=== PATIENT | male | born 1940 | race Caucasian/White ===

== ENCOUNTER → 2016-04-24 | Outpatient (CLI) | payer OTHER ==
[~2016-04-24] MED LIST: ALLO100T PO; AMLO-114 PO; ASPI1TAB83 PO; ATOR10TA88 PO; CHOL20009 PO; HYDR25TA4 PO; INSDGI SC; INSUINJ4 SQ; LISI20TA3 PO; LRS10 PO; LUTE20TA PO; MECL1TAB42 PO; METO25TA3 PO; NRN100 PO; NVLGI/PEN SC; WARF2.5T8 PO; WARF5TAB7 PO
--- NOTE | 2016-04-24 14:47 | DIAGNOSTIC IMAGING REPORT ---
LUMBAR SPINE 5 VIEWS HISTORY: Back pain STRAIN OF LUMBAR PARASPINAL MUSCLE COMPARISON: None. FINDINGS: Very slight and shape scoliosis. Mild degenerative intervertebral disc changes throughout. Moderate disc degenerative change at L4-L5. No evidence for acute compression deformity. No subluxation. IMPRESSION: Mild to moderate degenerative change. Mild scoliosis. No acute process. Electronically signed by: Yordy Nunes M.D. 04/24/2016 2:46 PM Dictated Date/Time: 04/24/2016 2:45 PM
== END | disposition home or self-care (01) ==
LOC: C.RDSM 14:30
PROVIDERS: ATTEND Physical Medicine & Rehabilitation Sports Medicine
DX: M72.2 Plantar fascial fibromatosis (principal); S39.012D Strain of muscle, fascia and tendon of lower back, subsequent encounter; X58.XXXD Exposure to other specified factors, subsequent encounter

== ENCOUNTER → 2016-05-16 | Outpatient (CLI) | payer OTHER ==
--- NOTE | 2016-05-16 11:32 | DIAGNOSTIC IMAGING REPORT ---
LUMBAR SPINE MRI HISTORY: MRI lumbar spine M54.16 Lumbar [id number] TECHNIQUE: Multiplanar multisequence MRI of the lumbar spine was performed without the use of contrast. COMPARISON: None. FINDINGS: For the purpose of the report the L5-S1 disc space will be located on axial image 27 of 30. Normal signal characteristics of the vertebral bodies. Mild degenerative disc change L4-L5. Minimal disc desiccation L2-L3 and L3-L4. L1-L2: No significant central canal or neural foraminal narrowing. L2-L3: No significant central canal or neural foraminal narrowing. L3-L4: No significant central canal or neural foraminal narrowing. L4-L5: Mild broad-based disc bulge. Minimal impact anterior thecal sac. L5-S1: No significant central canal or neural foraminal narrowing. IMPRESSION: Minimal broad-based disc bulge L4-L5. Minimal degenerative disc change. Otherwise negative study Electronically signed by: Yordy Nunes M.D. 05/16/2016 11:31 AM Dictated Date/Time: 05/16/2016 11:26 AM
--- NOTE | 2016-05-16 14:10 | DIAGNOSTIC IMAGING REPORT ---
ABDOMEN AND PELVIS CT WITH ORAL CONTRAST CT DOSE: 1170.67 mGycm HISTORY: Pain. Neuropathy. M54.16 Lumbar [id number] TECHNIQUE: Multiaxial CT images of the abdomen and pelvis were performed following the use of oral contrast. COMPARISON STUDY: 07/08/2012 FINDINGS: Lung bases in general are clear. There is minimal pleural reactive thickening lateral aspect right base unaltered from the prior study. There are no new or interval basilar changes. Patient is status post cholecystectomy. Configuration of liver spleen and pancreas appear unremarkable. Mild cortical scarring of the kidneys bilaterally. No evidence renal hydronephrosis. No evidence for an obstructing urinary tract calculus. Mild atherosclerotic change of the abdominal and pelvic arterial vasculature. No evidence for aneurysm. . Nonobstructive bowel pattern. Structures of pelvis are unremarkable. IMPRESSION: No acute process of the abdomen or pelvis. Prior cholecystectomy Electronically signed by: Yordy Nunes M.D. 05/16/2016 2:09 PM Dictated Date/Time: 05/16/2016 2:03 PM
== END | disposition home or self-care (01) ==
LOC: C.MRI 10:40
PROVIDERS: ATTEND Internal Medicine Geriatric Medicine
DX: M54.16 Radiculopathy, lumbar region (principal)

== ENCOUNTER → 2016-05-29 | Outpatient (CLI) | payer OTHER ==
--- NOTE | 2016-05-29 12:43 | DIAGNOSTIC IMAGING REPORT ---
LEG LENGTH STUDY (WHOLE LEG) CLINICAL HISTORY: THORACIC BACK Pain, chest WALL Pain, leg LENGTH DISC COMPARISON STUDY: None FINDINGS: Total leg length of the right lower extremity is 97.05 mm. Total length on the left is 96.4 mm. Discrepancy is approximately 7 mm with a left leg shorter than that of the right. Femoral length of the left is 54.7 mm femoral length a left is 54.05 mm. Discrepancy is 6 mm Tibial length on the right is 42.3 mm on the left is 42.1 mm IMPRESSION: Total leg length discrepancy 7 mm with a left shoulder the lateral right. The bulk of this discrepancy is in a shorter left femoral leg length as compared to the right as discussed above Electronically signed by: Yordy Nunes M.D. 05/29/2016 12:41 PM Dictated Date/Time: 05/29/2016 12:35 PM
--- NOTE | 2016-05-29 12:46 | DIAGNOSTIC IMAGING REPORT ---
RIGHT RIBS UNILATERAL WITH PA CHEST CLINICAL HISTORY: RIGHT LOWER POSTERIOR FLANK PAIN Right COMPARISON STUDY: Chest 10/11/2012. FINDINGS: Stable blunting of the right lateral costophrenic sulcus and focal mild right pleural thickening. This appears to be due to prominent extrapleural fat and a small scarlike density on the 05/16/[address] No pleural effusions. No pneumothorax. The gallbladder surgically absent. The lungs are otherwise clear. The heart is stable in size. No acute rib fractures. Focal fusion within the right anterior fifth and sixth ribs. IMPRESSION: No acute rib fractures. No pneumothorax. Stable chronic changes within the right hemithorax as described above. Electronically signed by: Kareem Luna M.D. 05/29/2016 12:45 PM Dictated Date/Time: 05/29/2016 12:41 PM
== END | disposition home or self-care (01) ==
LOC: C.RADBC 11:46
PROVIDERS: ATTEND Anesthesiology
DX: M54.6 Pain in thoracic spine (principal); R07.89 Other chest pain; M21.752 Unequal limb length (acquired), left femur

== ENCOUNTER → 2016-06-06 | Outpatient (CLI) | payer OTHER ==
[~2016-06-06] MED LIST changes: -WARF2.5T8 PO
[2016-06-06 11:16] LABS: BASO % 0.5 %; BASO ABS # 0.03 K/uL (0-0.2); COMPLETE YES; EOS % 4.6 %; HEMATOCRIT 41.4 % (42-52); IG% 0.5 %; LYMPH % 27.7 %; LYMPH ABS # 1.61 K/uL (1.2-3.4); MEAN CORPUSCULAR HEMOGLOBIN 31.9 pg (25-34); MEAN PLATELET VOLUME 9.3 fL (7.4-10.4); MONO % 10.3 %; NEUT % 56.4 %; PLATELET COUNT 226 K/uL (130-400); RED BLOOD COUNT 4.55 M/uL (4.7-6.1); WHITE BLOOD COUNT 5.81 K/uL (4.8-10.8)
[2016-06-06 11:28] LABS: ESTIMATED AVERAGE GLUCOSE 203 mg/dl; HA1C FLAG Normal (Normal)
[2016-06-06 11:55] LABS: AST/SGOT 11 U/L (15-37); BLOOD UREA NITROGEN 36 mg/dl (7-18); BUN/CREATININE RATIO 17.9 (10-20); CALCIUM 8.8 mg/dl (8.5-10.1); CARBON DIOXIDE 26 mmol/L (21-32); CHLORIDE 108 mmol/L (98-107); CHOLESTEROL 142 mg/dl (0-200); CHOLESTEROL/HDL RATIO 3.2; GLUCOSE 195 mg/dl (70-99); HDL CHOLESTEROL 45 mg/dl; LDL CHOLESTEROL CALCULATED 72 mg/dl; SODIUM 141 mmol/L (136-145); TRIGLYCERIDES 124 mg/dl (0-150); URIC ACID 6.1 mg/dl (2.6-7.2); VERY LOW DENSITY LIPOPROT CALC 25 mg/dl
[2016-06-06 12:03] LABS: ALB/GLOB RATIO 1.1 (0.9-2); ALKALINE PHOSPHATASE 63 U/L (45-117); ALT/SGPT 23 U/L (12-78)
[2016-06-06 12:21] LABS: URINE APPEARANCE CLEAR (CLEAR); URINE BILIRUBIN NEG (NEG); URINE COLOR DK YELLOW; URINE EPITHELIAL CELL AUTO 0-5 /lpf (0-5); URINE NITRITE NEG (NEG); URINE SPECIFIC GRAVITY 1.023 (1.000-1.030); UROBILINOGEN NEG (NEG)
[2016-06-06 12:26] LABS: MANUAL MICROSCOPIC REQUIRED? NO; REVIEW REQ? NO
[2016-06-06 12:52] LABS: RATIO 12.8 mcg/mg (0-30.0)
== END | disposition home or self-care (01) ==
LOC: C.LAB1850 10:06
PROVIDERS: ATTEND Internal Medicine
DX: I12.9 Hypertensive chronic kidney disease with stage 1 through stage 4 chronic kidney disease, or unspecified chronic kidney disease (principal); K57.30 Diverticulosis of large intestine without perforation or abscess without bleeding; E11.22 Type 2 diabetes mellitus with diabetic chronic kidney disease; I48.0 Paroxysmal atrial fibrillation; Z79.01 Long term (current) use of anticoagulants; E55.9 Vitamin D deficiency, unspecified; E87.5 Hyperkalemia; N18.3 Chronic kidney disease, stage 3 (moderate)

== ENCOUNTER → 2016-06-19 | Outpatient (CLI) | payer OTHER ==
[2016-06-19 17:29] LABS: INR 1.8 (0.9-1.1); PROTHROMBIN TIME (PATIENT) 20.1 SECONDS (9.0-12.0)
[2016-06-23 00:36] LABS: VARICELLA ZOS VIR IGG 4.02 Index (>=1.10); VARICELLA ZOS VIR IGM AB <=0.90 (<=0.90)
== END | disposition home or self-care (01) ==
LOC: C.LAB1850 16:16
PROVIDERS: ATTEND Internal Medicine
DX: E78.5 Hyperlipidemia, unspecified (principal); I48.0 Paroxysmal atrial fibrillation

== ENCOUNTER → 2016-06-25 | Outpatient (CLI) | payer OTHER ==
[~2016-06-25] MED LIST changes: +ATOR10TA82 PO; -ATOR10TA88 PO
--- NOTE | 2016-06-25 12:34 | DIAGNOSTIC IMAGING REPORT ---
THORACIC SPINE MRI HISTORY: Pain. Radiculopathy. THORACIC RADICULOPATHY TECHNIQUE: Multiplanar multisequence MRI of the thoracic spine was performed without the use of contrast. COMPARISON: None. FINDINGS: Moderate degenerative disc change throughout the entire thoracic region. Signal characteristics of the vertebral bodies are unremarkable. There is no acute compression deformity. There is no evidence for subluxation. Signal characteristics of the thoracic cord are unremarkable. Transaxial images throughout the entire thoracic region are considered negative for major disc herniation spinal stenosis or narrowing of the neural foramina. IMPRESSION: 1. Considerable degenerative disc change throughout the entire thoracic region. 2. No evidence for disc herniation or spinal stenosis. Electronically signed by: Yordy Nunes M.D. 06/25/2016 12:33 PM Dictated Date/Time: 06/25/2016 12:30 PM
== END | disposition home or self-care (01) ==
LOC: C.MRIBC 11:03
PROVIDERS: ATTEND Internal Medicine Geriatric Medicine
DX: M54.14 Radiculopathy, thoracic region (principal)

== ENCOUNTER 2016-07-27 11:59 | Emergency (ER) | payer OTHER ==
[~2016-07-27] VITALS: Ht 180.3 cm; Wt 120.0 kg
[~2016-07-27 11:59] MED LIST changes: -CHOL20009 PO; -INSDGI SC; -LRS10 PO; -LUTE20TA PO; -MECL1TAB42 PO; -NRN100 PO
[2016-07-27 12:01] VITALS: TEMP 36.4; Ht 180.3 cm; Wt 120.0 kg
[2016-07-27] MEDS ORDERED: CHOL20009 PO (12:44)
[2016-07-27] MEDS ORDERED: LUTE20TA PO (12:44)
[2016-07-27] MEDS ORDERED: INSDGI SC (12:44)
[2016-07-27] MEDS ORDERED: NRN100 PO (12:44)
[2016-07-27] MEDS ORDERED: LRS10 PO (12:44)
[2016-07-27] MEDS ORDERED: ONDANSETRON INJ 2 MG/ML 2 ML VIAL IV STA (12:57)
[2016-07-27] MEDS ORDERED: ONDANSETRON INJ 2 MG/ML 2 ML VIAL ONE (12:59)
[2016-07-27 13:10] LABS: BASO % 0.8 %; BASO ABS # 0.05 K/uL (0-0.2); COMPLETE YES; EOS % 5.5 %; HEMATOCRIT 44.1 % (42-52); IG% 0.5 %; LYMPH % 26.3 %; LYMPH ABS # 1.66 K/uL (1.2-3.4); MEAN CORPUSCULAR HEMOGLOBIN 31.6 pg (25-34); MEAN CORPUSCULAR HGB CONC 33.6 g/dl (32-36); NEUT % 57.9 %; PLATELET COUNT 201 K/uL (130-400); RED BLOOD COUNT 4.69 M/uL (4.7-6.1); WHITE BLOOD COUNT 6.31 K/uL (4.8-10.8)
[2016-07-27] MEDS ORDERED: MECLIZINE HCL 25 MG TAB PO STA (13:10)
[2016-07-27] MEDS ORDERED: SODIUM CHLORIDE 0.9% 1000ML 1,000 ML IV STA (13:10)
[2016-07-27] MEDS ORDERED: DIAZEPAM INJ 5 MG/ML 2 ML CARP IV STA (13:10)
[2016-07-27 13:15] LABS: INR 1.7 (0.9-1.1); PARTIAL THROMBOPLASTIN RATIO 1.2; PROTHROMBIN TIME (PATIENT) 18.8 SECONDS (9.0-12.0)
[2016-07-27 13:19] LABS: BUN/CREATININE RATIO 20.3 (10-20); CALCIUM 8.8 mg/dl (8.5-10.1); CREATININE 1.9 mg/dl (0.60-1.40); POTASSIUM 5.2 mmol/L (3.5-5.1)
[2016-07-27 13:22] LABS: ALB/GLOB RATIO 1.1 (0.9-2)
--- NOTE | 2016-07-27 13:44 | EMERGENCY ROOM VISIT NOTE ---
History Report prepared by Keri: Silvestre Ruiz Under the Supervision of: Dr. Reji Alfred M.D. First contact with patient: 13:03 Chief Complaint: NAUSEA Stated Complaint: LIGHTHEADED, NAUSEA Nursing Triage Summary: PT VERBALIZES LIGHTHEADEDNESS AND DRY HEAVES FOR 15 MINUTES UNCONTROLLED WHILE JUST SITTING AT HOME, HIT HIM SUDDENLY. PT VERBALIZES HE HAS BEEN TAKING MEDICATIONS FOR BACK PAIN, BUT NOTHING NEW. History of Present Illness The patient is a 76 year old male who presents to the Emergency Room with complaints of nausea that began earlier today. He was sitting down drinking coffee when he moved his head suddenly. He then became very lightheaded and nauseated for about 15 minutes. Sudden movements make his symptoms present themselves worse, while lying down makes them better. He denies any double vision. He is currently on Coumadin. He has a past medical history of atrial fibrillation. He has been experiencing back pain for 3 months which he is currently being treated for as well. Source of History: patient Onset: earlier today Position: other (global) Symptom Intensity: moderate Quality: other (nausea) Timing: waxes/wanes Modifying Factors (Worsening): movement (sudden) Note: He denies any double vision. He is experiencing lightheadedness. Review of Systems See HPI for pertinent positives & negatives. A total of 10 systems reviewed and were otherwise negative. 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, TYPE II OR UNSPEC TYPE, NOT UNCNTRLD (4) HYPERTENSION NOS (5) MIXED HYPERLIPIDEMIA Family History Diabetes mellitus Hypertension Kidney disease Kidney stones Social History Smoking Status: Never Smoker Alcohol Use: none Drug Use: none Marital Status: Housing Status: lives with family Occupation Status: retired Current/Historical Medications Scheduled Allopurinol (Zyloprim), 100 MG PO HS Amlodipine (Norvasc), 10 MG PO HS Aspirin (Aspirin), 81 MG PO HS Atorvastatin (Lipitor), 10 MG PO HS Baclofen (Baclofen), 10 MG PO HS Cholecalciferol (Vitamin D), 2,000 UNIT PO QAM Gabapentin (Gabapentin), 100 MG PO BID Hydrochlorothiazide (Hctz), 25 MG PO HS Insulin Glargine (Lantus), 55 UNITS SC HS Lisinopril (Prinivil), 20 MG PO HS Lutein (Lutein), 20 MG PO QAM Metoprolol Succinate (Toprol Xl), 25 MG PO HS Warfarin Sod (Jantoven), 5 MG PO UD Scheduled PRN Insulin Aspart (Novolog Flexpen), Unknown Dose SC UD PRN for SLIDING SCALE Meclizine Hcl (Meclizine Hcl), 1 TAB PO TID PRN for Dizziness or Vertigo Allergies Coded Allergies: Nizatidine (Verified Allergy, Unknown, UNKNOWN, 07/27/16) Phenylbutazone (Verified Allergy, Unknown, UNKNOWN, 07/27/16) Tetanus Toxoid (Verified Allergy, Unknown, UNKNOWN, 07/27/16) Physical Exam Vital Signs Date Time Temp Pulse Resp B/P Pulse Ox O2 Delivery O2 Flow Rate FiO2 07/27/16 14:43 101 16 145/96 98 Room Air 07/27/16 13:38 72 16 119/87 07/27/16 12:18 93 07/27/16 12:01 36.4 107 20 126/84 96 Room Air Physical Exam GENERAL: Patient is a healthy-appearing well-nourished. Vertiginousness when moving head from side to side or sitting up. HEAD: Normocephalic atraumatic EYES: Ocular movements intact pupils equal and react to light OROPHARYNX mucous membranes are moist no exudates present no erythema or edema present NECK: Supple no nuchal rigidity CHEST: Good equal expansion LUNGS: Clear and equal to auscultation CARDIAC: Normal S1 and S2 ABDOMEN: Soft nontender no guarding BACK: No CVA tenderness EXTREMITIES: No pain upon palpation normal muscle strength in all groups no clubbing cyanosis or edema NEURO: Patient is following commands is answering questions appropriately. Alert and oriented x3 Cranial Nerves 2-12 grossly intact Medical Decision & Procedures ER Provider Diagnostic Interpretation: Radiology results as stated below per my review and radiologist interpretation: CT HEAD WITHOUT CONTRAST (CT) CLINICAL HISTORY: Dizziness COMPARISON STUDY: No previous studies for comparison. TECHNIQUE: Axial CT of the brain is performed from the vertex to the skull base. IV contrast was not administered for this examination. CT DOSE: 884.08 mGy.cm FINDINGS: No intra or extra-axial mass lesions are visualized. There is no CT evidence of acute cortical infarction. There is no evidence of midline shift. There is no acute hemorrhage. No calvarial fractures are visualized. There are minor white matter hypodensities likely on a small vessel basis. There is no evidence of pathologic ventricular dilatation. There is bilateral maxilla sinus mucosal thickening/fluid. There is sphenoid sinus mucosal thickening. There is opacification of several ethmoid air cells. There is mild mucosal disease within the right frontal sinus. IMPRESSION: 1. Pansinus disease 2. No acute intracranial findings Electronically signed by: Shukri Marrufo M.D. 07/27/2016 2:08 PM Dictated Date/Time: 07/27/2016 2:07 PM Laboratory Results 07/27/16 12:15 Red Blood Count 4.69, Mean Corpuscular Volume 94.0, Mean Corpuscular Hemoglobin 31.6, Mean Corpuscular Hemoglobin Concent 33.6, Mean Platelet Volume 9.0, Neutrophils (%) (Auto) 57.9, Lymphocytes (%) (Auto) 26.3, Monocytes (%) (Auto) 9.0, Eosinophils (%) (Auto) 5.5, Basophils (%) (Auto) 0.8, Neutrophils # (Auto) 3.65, Lymphocytes # (Auto) 1.66, Monocytes # (Auto) 0.57, Eosinophils # (Auto) 0.35, Basophils # (Auto) 0.05 07/27/16 12:15 Test 07/27/16 12:15 White Blood Count 6.31 K/uL (4.8-10.8) Red Blood Count 4.69 M/uL (4.7-6.1) Hemoglobin 14.8 g/dL (14.0-18.0) Hematocrit 44.1 % (42-52) Mean Corpuscular Volume 94.0 fL (80-100) Mean Corpuscular Hemoglobin 31.6 pg (25-34) Mean Corpuscular Hemoglobin Concent 33.6 g/dl (32-36) Platelet Count 201 K/uL (130-400) Mean Platelet Volume 9.0 fL (7.4-10.4) Neutrophils (%) (Auto) 57.9 % Lymphocytes (%) (Auto) 26.3 % Monocytes (%) (Auto) 9.0 % Eosinophils (%) (Auto) 5.5 % Basophils (%) (Auto) 0.8 % Neutrophils # (Auto) 3.65 K/uL (1.4-6.5) Lymphocytes # (Auto) 1.66 K/uL (1.2-3.4) Monocytes # (Auto) 0.57 K/uL (0.11-0.59) Eosinophils # (Auto) 0.35 K/uL (0-0.5) Basophils # (Auto) 0.05 K/uL (0-0.2) RDW Standard Deviation 45.5 fL (36.4-46.3) RDW Coefficient of Variation 13.2 % (11.5-14.5) Immature Granulocyte % (Auto) 0.5 % Immature Granulocyte # (Auto) 0.03 K/uL (0.00-0.02) Prothrombin Time 18.8 SECONDS (9.0-12.0) Prothromb Time International Ratio 1.7 (0.9-1.1) Activated Partial Thromboplast Time 32.0 SECONDS (21.0-31.0) Partial Thromboplastin Ratio 1.2 Anion Gap 9.0 mmol/L (3-11) Est Creatinine Clear Calc Drug Dose 43.6 ml/min Estimated GFR () 38.8 Estimated GFR (Non- 33.5 BUN/Creatinine Ratio 20.3 (10-20) Calcium Level 8.8 mg/dl (8.5-10.1) Total Bilirubin 0.8 mg/dl (0.2-1) Aspartate Amino Transf (AST/SGOT) 12 U/L (15-37) Alanine Aminotransferase (ALT/SGPT) 26 U/L (12-78) Alkaline Phosphatase 64 U/L (45-117) Total Protein 7.8 gm/dl (6.4-8.2) Albumin 4.1 gm/dl (3.4-5.0) Globulin 3.7 gm/dl (2.5-4.0) Albumin/Globulin Ratio 1.1 (0.9-2) Labs reviewed by ED physician. Medications Administered Medications (Trade) Dose Ordered Sig/Neela Route Start Time Stop Time Status Last Admin Dose Admin Ondansetron HCl 4 mg 4 mg NOW STAT IV 07/27/16 12:57 07/27/16 12:59 DC 07/27/16 13:06 4 MG Sodium Chloride (Nss 1000ml) 1,000 ml @ 999 mls/hr Q1H1M STAT IV 07/27/16 13:10 07/27/16 14:10 DC 07/27/16 13:36 999 MLS/HR Meclizine HCl (Antivert Tab) 25 mg NOW STAT PO 07/27/16 13:10 07/27/16 13:12 DC 07/27/16 13:36 25 MG Diazepam (Valium Inj) 2.5 mg NOW STAT IV 07/27/16 13:10 07/27/16 13:12 DC 07/27/16 13:36 2.5 MG ECG Indication: other (Vertigo) Rate (beats per minute): 104 Rhythm: atrial fibrillation Findings: no acute ischemic change Comparison ECG Date: 16 Nov 2015 Change: no significant change ED Course 1303: Past medical records reviewed. The patient was evaluated in room B2. A complete history and physical examination was performed. 1257: Ordered Zofran Inj 4 mg IV 1259: Ordered Zofran Inj 4 mg IV 1310: Ordered Valium Inj 2.5 mg IV, Antivert Tab 25 mg PO, Sodium Chloride 1000 ml @ 999 mls/hr IV 1432: Upon reexamination the patient is resting. I discussed results and treatment plan with the patient. He verbalizes agreement and understanding. The patient is ready for discharge. Medical Decision Differential diagnosis: Etiologies such as benign positional vertigo, dehydration, hypovolemia, anemia, tumor, infection, hypoglycemia, electrolyte abnormalities, cardiac sources, intracerebral event, toxicologic, neurologic, as well as others were entertained. This is a 76-year-old male who presents emergency department complaining of symptoms radhika to benign positional vertigo. The patient relates when moving his head the symptoms suddenly start and they slowly fatigue. Patient reports they started suddenly when he was sitting in his chair today and he moved his head. An IV was established, patient given normal saline bolus, meclizine, Valium. Repeat examination revealed improvement patient's symptoms. I do believe that the patient is well enough to be discharged home for follow-up with primary care physician. Patient was in agreement with the treatment plan. Impression Primary Impression: Benign positional vertigo Scribe Attestation The scribe's documentation has been prepared under my direction and personally reviewed by me in its entirety. I confirm that the note above accurately reflects all work, treatment, procedures, and medical decision making performed by me. Departure Information Dispostion Home / Self-Care Prescriptions Meclizine Hcl (MECLIZINE HCL) 25 Mg Tab 1 TAB PO TID Y for Dizziness or Vertigo for 10 Days, #30 TAB Prov: Reji Alfred MD 07/27/16 Referrals Az Dodd M.D. (PCP) Forms HOME CARE DOCUMENTATION FORM, IMPORTANT VISIT INFORMATION, School Instructions, Work Instructions Patient Instructions ED Vertigo Unspecified, [facility] Additional Instructions INR= 1.[address] Avilez's office You have been examined and treated today on an emergency basis only. This is not a substitute for, or an effort to provide, complete comprehensive medical care. It is impossible to recognize and treat all injuries or illnesses in a single emergency department visit. It is therefore important that you follow up closely with Dr Dodd. Call as soon as possible for an appointment. Thank you for your time and consideration. I look forward to speaking with you again soon. Please don't hesitate to call us if you have any questions. Problem Qualifiers Primary Impression: Benign positional vertigo Laterality: unspecified laterality Qualified Codes: H81.10 - Benign paroxysmal vertigo, unspecified ear
--- NOTE | 2016-07-27 14:09 | DIAGNOSTIC IMAGING REPORT ---
CT HEAD WITHOUT CONTRAST (CT) CLINICAL HISTORY: Dizziness COMPARISON STUDY: No previous studies for comparison. TECHNIQUE: Axial CT of the brain is performed from the vertex to the skull base. IV contrast was not administered for this examination. CT DOSE: 884.08 mGy.cm FINDINGS: No intra or extra-axial mass lesions are visualized. There is no CT evidence of acute cortical infarction. There is no evidence of midline shift. There is no acute hemorrhage. No calvarial fractures are visualized. There are minor white matter hypodensities likely on a small vessel basis. There is no evidence of pathologic ventricular dilatation. There is bilateral maxilla sinus mucosal thickening/fluid. There is sphenoid sinus mucosal thickening. There is opacification of several ethmoid air cells. There is mild mucosal disease within the right frontal sinus. IMPRESSION: 1. Pansinus disease 2. No acute intracranial findings Electronically signed by: Shukri Marrufo M.D. 07/27/2016 2:08 PM Dictated Date/Time: 07/27/2016 2:07 PM
[2016-07-27] MEDS ORDERED: MECL1TAB42 PO (14:28)
[2016-07-27 14:43] VITALS: BP 145/96; PULSE 101; O2SAT 98
== END 2016-07-27 14:50 | disposition home or self-care (01) ==
LOC: C.EDB 12:00
DX: H81.10 Benign paroxysmal vertigo, unspecified ear (principal); I48.91 Unspecified atrial fibrillation; I12.9 Hypertensive chronic kidney disease with stage 1 through stage 4 chronic kidney disease, or unspecified chronic kidney disease; N18.9 Chronic kidney disease, unspecified; E11.9 Type 2 diabetes mellitus without complications; E78.2 Mixed hyperlipidemia; Z79.82 Long term (current) use of aspirin; Z79.4 Long term (current) use of insulin; Z79.899 Other long term (current) drug therapy; Z79.01 Long term (current) use of anticoagulants; Z88.8 Allergy status to other drugs, medicaments and biological substances; Z83.3 Family history of diabetes mellitus; Z82.49 Family history of ischemic heart disease and other diseases of the circulatory system; Z84.1 Family history of disorders of kidney and ureter; R42 Dizziness and giddiness

== ENCOUNTER → 2016-09-25 | Outpatient (CLI) | payer OTHER ==
[~2016-09-25] MED LIST changes: -ATOR10TA82 PO; +ATOR10TA88 PO; +CHOL20009 PO; +INSDGI SC; -INSUINJ4 SQ; +LRS10 PO; +LUTE20TA PO; +NRN100 PO
[2016-09-25 18:23] LABS: BLOOD UREA NITROGEN 39 mg/dl (7-18); BUN/CREATININE RATIO 17.5 (10-20); CALCIUM 9.3 mg/dl (8.5-10.1); CARBON DIOXIDE 26 mmol/L (21-32); CHLORIDE 104 mmol/L (98-107); GLUCOSE 128 mg/dl (70-99); POTASSIUM 4.5 mmol/L (3.5-5.1); SODIUM 137 mmol/L (136-145)
[2016-09-26 06:23] LABS: ESTIMATED AVERAGE GLUCOSE 197 mg/dl; HA1C FLAG Normal (Normal)
--- NOTE | 2016-10-02 14:25 | CODING QUERY MEDICAL NECESSITY ---
SUPPORTING DIAGNOSIS NEEDED Dr. Souza, A supporting diagnosis is required for the test/procedure performed on this patient in order for us to be reimbursed by the patient's insurance. Please provide a supporting diagnosis for the following test/procedure listed below next to the test name along with your signature. *If there is no additional diagnosis for this patient that would support the following test/procedure please document that below next to the test/procedure. Test(s)/Procedure(s) that require a supporting diagnosis: * [id number] GLYCATED HEMOGLOBIN DIAGNOSIS: DATE OF SERVICE: 09/25/16 Provider Signature: Date: Thank you Yves Hoffman [facility] Information Management Once completed, please kindly fax back to [phone] For questions please call [phone]
== END | disposition home or self-care (01) ==
LOC: C.LAB1850 16:25
PROVIDERS: ATTEND Internal Medicine
DX: E78.5 Hyperlipidemia, unspecified (principal); E11.9 Type 2 diabetes mellitus without complications

== ENCOUNTER 2017-02-11 15:08 | Emergency (ER) | payer OTHER ==
[~2017-02-11] VITALS: Ht 180.3 cm; Wt 127.0 kg
[~2017-02-11 15:08] MED LIST changes: +ATOR10TA82 PO; -ATOR10TA88 PO
[2017-02-11 15:19] VITALS: TEMP 36.4; Ht 180.3 cm; Wt 127.0 kg
[2017-02-11] MEDS ORDERED: MECLIZINE HCL 25 MG TAB PO STA (15:25)
[2017-02-11] MEDS ORDERED: ONDANSETRON INJ 2 MG/ML 2 ML VIAL IV STA (15:25)
[2017-02-11] MEDS ORDERED: DIAZEPAM INJ 5 MG/ML 2 ML CARP IV STA (15:25)
--- NOTE | 2017-02-11 15:34 | EMERGENCY ROOM VISIT NOTE ---
History First contact with patient: 15:14 Chief Complaint: DIZZY Stated Complaint: DIZZY, NAUSEA, VOMITING Nursing Triage Summary: Pt brought ALS from home for c/o dizziness, nausea/vomitting which began at 13:45 while working in his garage. Pt in Afib which he has a hx of. Pt also reports hx of vertigo. Pt denies falling or syncope, denies chest pain or SOB. Pt given Zofran 4mg and NSS by EMS, pt reports no improvement in symptoms. History of Present Illness The patient is a 76 year old male who presents to the Emergency Room via ALS complaining of dizziness which began approximately one hour prior to arrival. The patient reports that he was working in his garage when he turned his head to the side and had a sudden onset of dizziness and nausea. He had several episodes of vomiting. He describes the dizziness as a feeling of the room spinning around him. He reports that at this time, his dizziness has improved slightly. He reports that his symptoms are worse with any movement of his head. He reports a history of vertigo and was seen here approximately 6 months for similar symptoms. He reports that he received medications here which resolved his symptoms. He did not follow-up with his primary care provider following that ER visit. He denies any headaches, neck pain, chest pain, shortness of breath, abdominal pain, hematemesis, numbness, weakness, blurred vision, slurred speech or confusion. Review of Systems A complete 10 point review of systems was reviewed with the patient with pertinent positives and negatives as per history of present illness. All else were negative. 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, TYPE II OR UNSPEC TYPE, NOT UNCNTRLD (4) HYPERTENSION NOS (5) MIXED HYPERLIPIDEMIA Family History Diabetes mellitus Hypertension Kidney disease Kidney stones Social History Smoking Status: Never Smoker Alcohol Use: none Drug Use: none Marital Status: Housing Status: lives with family Occupation Status: retired Current/Historical Medications Scheduled Allopurinol (Zyloprim), 100 MG PO HS Amlodipine (Norvasc), 10 MG PO HS Aspirin (Aspirin), 81 MG PO HS Atorvastatin (Lipitor), 10 MG PO HS Baclofen (Baclofen), 10 MG PO HS Cholecalciferol (Vitamin D), 2,000 UNIT PO QAM Hydrochlorothiazide (Hctz), 25 MG PO HS Insulin Glargine (Lantus), 55 UNITS SC HS Lisinopril (Prinivil), 20 MG PO HS Lutein (Lutein), 20 MG PO QAM Metoprolol Succinate (Toprol Xl), 25 MG PO HS Warfarin Sod (Jantoven), 5 MG PO UD Scheduled PRN Insulin Aspart (Novolog Flexpen), Unknown Dose SC UD PRN for SLIDING SCALE Physical Exam Vital Signs Date Time Temp Pulse Resp B/P (MAP) Pulse Ox O2 Delivery O2 Flow Rate FiO2 02/11/17 19:49 65 18 136/98 95 Room Air 02/11/17 16:17 105 02/11/17 15:58 102 16 123/81 93 Room Air 02/11/17 15:19 36.4 113 20 133/84 93 Room Air Physical Exam VITALS: Vitals are noted on the nurse's note and reviewed by myself. Vital signs stable. GENERAL: This is a 76-year-old male, in no acute distress, nondiaphoretic, well- developed well-nourished. SKIN: The skin was without rashes. HEAD: Normocephalic atraumatic. EARS: External auditory canals clear, tympanic membranes pearly vivas without erythema or effusion bilaterally. EYES: Pupils equal round and reactive to light and accommodation. Conjunctivae without injection, sclerae without icterus. Extraocular movements intact. Horizontal nystagmus noted. MOUTH: Mucous membranes moist. NECK: Supple without nuchal rigidity. No lymphadenopathy. HEART: Regular rate and rhythm without murmurs gallops or rubs. LUNGS: Clear to auscultation bilaterally without wheezes, rales or rhonchi. MUSCULOSKELETAL: Strength 5/5 throughout. NEURO: Patient was alert and oriented to person place and time. Normal sensation to light and sharp touch. No focal neurological deficits. Medical Decision & Procedures ER Provider Diagnostic Interpretation: SINGLE VIEW CHEST FINDINGS: An AP, portable, upright chest radiograph is compared to study dated 10/11/2012. The examination is degraded by portable technique and patient rotation. The heart is mildly enlarged. The pulmonary vasculature is noncongested. There are low lung volumes with bibasilar atelectasis. No large pleural effusion or pneumothorax is seen. The skeletal structures are osteopenic. Healed bilateral rib fractures are noted. IMPRESSION: Low lung volumes and mild cardiomegaly. No acute cardiopulmonary abnormality is seen. CT OF THE HEAD WITHOUT CONTRAST FINDINGS: No acute intracranial hemorrhage, midline shift or mass effect is present. Ventricular system is stable. Basilar cisterns are patent. There are no extra-axial collections. There are no findings to suggest acute dural sinus thrombosis or acute territorial infarct. Mild mucosal thickening of the sinuses is similar to head CT of July 27, 2016. Mastoid air cells are clear and there are no significant calvarial abnormalities. IMPRESSION: No acute intracranial findings. Laboratory Results 02/11/17 14:35 Red Blood Count 4.55, Mean Corpuscular Volume 93.4, Mean Corpuscular Hemoglobin 33.0, Mean Corpuscular Hemoglobin Concent 35.3, Mean Platelet Volume 9.0, Neutrophils (%) (Auto) 46.5, Lymphocytes (%) (Auto) 39.4, Monocytes (%) (Auto) 7.3, Eosinophils (%) (Auto) 5.9, Basophils (%) (Auto) 0.5, Neutrophils # (Auto) 3.58, Lymphocytes # (Auto) 3.03, Monocytes # (Auto) 0.56, Eosinophils # (Auto) 0.45, Basophils # (Auto) 0.04 02/11/17 14:35 Test 02/11/17 14:35 02/11/17 17:11 02/11/17 18:50 White Blood Count 7.69 K/uL (4.8-10.8) Red Blood Count 4.55 M/uL (4.7-6.1) Hemoglobin 15.0 g/dL (14.0-18.0) Hematocrit 42.5 % (42-52) Mean Corpuscular Volume 93.4 fL (80-100) Mean Corpuscular Hemoglobin 33.0 pg (25-34) Mean Corpuscular Hemoglobin Concent 35.3 g/dl (32-36) Platelet Count 224 K/uL (130-400) Mean Platelet Volume 9.0 fL (7.4-10.4) Neutrophils (%) (Auto) 46.5 % Lymphocytes (%) (Auto) 39.4 % Monocytes (%) (Auto) 7.3 % Eosinophils (%) (Auto) 5.9 % Basophils (%) (Auto) 0.5 % Neutrophils # (Auto) 3.58 K/uL (1.4-6.5) Lymphocytes # (Auto) 3.03 K/uL (1.2-3.4) Monocytes # (Auto) 0.56 K/uL (0.11-0.59) Eosinophils # (Auto) 0.45 K/uL (0-0.5) Basophils # (Auto) 0.04 K/uL (0-0.2) RDW Standard Deviation 45.0 fL (36.4-46.3) RDW Coefficient of Variation 13.2 % (11.5-14.5) Immature Granulocyte % (Auto) 0.4 % Immature Granulocyte # (Auto) 0.03 K/uL (0.00-0.02) Anion Gap 10.0 mmol/L (3-11) Est Creatinine Clear Calc Drug Dose 41.6 ml/min Estimated GFR () 35.4 Estimated GFR (Non- 30.6 BUN/Creatinine Ratio 16.4 (10-20) Calcium Level 8.8 mg/dl (8.5-10.1) Magnesium Level 1.7 mg/dl (1.8-2.4) Total Bilirubin 1.0 mg/dl (0.2-1) Aspartate Amino Transf (AST/SGOT) 20 U/L (15-37) Alanine Aminotransferase (ALT/SGPT) 27 U/L (12-78) Alkaline Phosphatase 67 U/L (45-117) Troponin I < 0.015 ng/ml (0-0.045) Total Protein 8.0 gm/dl (6.4-8.2) Albumin 4.2 gm/dl (3.4-5.0) Globulin 3.8 gm/dl (2.5-4.0) Albumin/Globulin Ratio 1.1 (0.9-2) Prothrombin Time 35.5 SECONDS (9.0-12.0) Prothromb Time International Ratio 3.2 (0.9-1.1) Activated Partial Thromboplast Time 37.8 SECONDS (21.0-31.0) Partial Thromboplastin Ratio 1.5 Urine Color YELLOW Urine Appearance CLEAR (CLEAR) Urine pH 5.0 (4.5-7.5) Urine Specific [place] 1.024 (1.000-1.030) Urine Protein NEG (NEG) Urine Glucose (UA) 3+ (NEG) Urine Ketones NEG (NEG) Urine Occult Blood NEG (NEG) Urine Nitrite NEG (NEG) Urine Bilirubin NEG (NEG) Urine Urobilinogen NEG (NEG) Urine Leukocyte Esterase NEG (NEG) Medications Administered Medications (Trade) Dose Ordered Sig/Neela Route Start Time Stop Time Status Last Admin Dose Admin Diazepam (Valium Inj) 2.5 mg NOW STAT IV 02/11/17 15:25 02/11/17 15:28 DC 02/11/17 15:36 2.5 MG Meclizine HCl (Antivert Tab) 25 mg NOW STAT PO 02/11/17 15:25 02/11/17 15:28 DC 02/11/17 15:36 25 MG Ondansetron HCl (Zofran Inj) 4 mg NOW STAT IV 02/11/17 15:25 02/11/17 15:28 DC 02/11/17 15:36 4 MG Lorazepam (Ativan Inj) 0.5 mg NOW STAT IV 02/11/17 16:11 02/11/17 16:13 DC 02/11/17 16:18 0.5 MG Promethazine HCl 12.5 mg/Sodium Chloride 50.5 ml @ 204 mls/hr NOW STAT IV 02/11/17 17:17 02/11/17 17:31 DC 02/11/17 17:44 204 MLS/HR ECG Rate (beats per minute): 106 Rhythm: atrial fibrillation (with RVR) ED Course The patient was evaluated as above. Labs were drawn and IV access was obtained. Patient was medicated with 4 mg Zofran, 25 mg meclizine and 2.5 mg of Valium. Patient was reevaluated and reported only slight relief of his symptoms. He was given 0.5 mg Ativan. Patient was reevaluated and was still experiencing symptoms. He was given 12.[address] of the head was performed and read by radiology as above. Patient was reevaluated and stated he was feeling much better. Brandee Anna Mansura was performed. Patient was able to walk the length of the hallway with no symptoms. Discharge instructions were reviewed with the patient. The patient verbalized understanding of my assessment and treatment plan and was discharged home in good condition. Medical Decision Differential diagnosis includes BPPV, lesion/mass effect, CVA, TIA, among others. The patient is a 76-year-old male who presents today complaining of vertigo. 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 He had a sudden onset of dizziness and nausea after turning his head today. His neurological exam is intact and supports a peripheral cause of his symptoms. CT of the head was unremarkable. Labs were unremarkable. EKG initially showed atrial fibrillation with rapid ventricular response. Patient has a history of atrial fibrillation. His heart rate improved with symptomatic improvement. Patient was treated with meclizine, Valium, Ativan, and Phenergan. He did eventually have full relief of his symptoms and was able to walk without any difficulty. He reports that his dizziness and nausea have resolved. I do feel he is safe to be discharged home and will follow-up with his primary care provider, who has seen him for his vertigo in the past. He will certainly return if any of his symptoms worsen or change at home. The patient was independently evaluated by Dr. Freire, ED attending physician, who agreed with my assessment and treatment plan. Based on the patient's presentation and work up, I feel the patient is stable for outpatient treatment. The patient was educated to return to the emergency department for any worsening of their current condition or new/concerning symptoms. He will follow up with is PCP. Medication Reconcilliation Current Medication List: was personally reviewed by me Blood Pressure Screening Patient's blood pressure: Normal blood pressure Impression Primary Impression: Vertigo Departure Information Dispostion Home / Self-Care Condition GOOD Referrals No Doctor, Assigned (PCP) Patient Instructions My [facility] Additional Instructions Call your primary care provider to schedule a follow-up appointment. You may also discuss ENT referral at that time. Take your meclizine at home as prescribed. Return to the emergency department for any worsening or new/concerning symptoms.
[2017-02-11 15:38] LABS: BASO % 0.5 %; BASO ABS # 0.04 K/uL (0-0.2); COMPLETE YES; EOS % 5.9 %; HEMATOCRIT 42.5 % (42-52); IG% 0.4 %; LYMPH % 39.4 %; LYMPH ABS # 3.03 K/uL (1.2-3.4); MEAN CELL VOLUME 93.4 fL (80-100); MEAN CORPUSCULAR HGB CONC 35.3 g/dl (32-36); MONO % 7.3 %; NEUT % 46.5 %; PLATELET COUNT 224 K/uL (130-400); RED BLOOD COUNT 4.55 M/uL (4.7-6.1); WHITE BLOOD COUNT 7.69 K/uL (4.8-10.8)
[2017-02-11 15:55] LABS: ALT/SGPT 27 U/L (12-78); BLOOD UREA NITROGEN 34 mg/dl (7-18); BUN/CREATININE RATIO 16.4 (10-20); CALCIUM 8.8 mg/dl (8.5-10.1); CARBON DIOXIDE 22 mmol/L (21-32); CHLORIDE 104 mmol/L (98-107); CREATININE 2.05 mg/dl (0.60-1.40); GLUCOSE 264 mg/dl (70-99); MAGNESIUM 1.7 mg/dl (1.8-2.4); POTASSIUM 4.1 mmol/L (3.5-5.1); SODIUM 137 mmol/L (136-145)
[2017-02-11 16:00] LABS: ALB/GLOB RATIO 1.1 (0.9-2); ALKALINE PHOSPHATASE 67 U/L (45-117); AST/SGOT 20 U/L (15-37)
[2017-02-11] MEDS ORDERED: LORAZEPAM 2 MG/ML 1 ML VIAL IV STA (16:11)
--- NOTE | 2017-02-11 16:37 | EMERGENCY ROOM VISIT NOTE ---
ED Visit Note First contact with patient: 15:14 I did evaluate and examine this patient myself. I did guide management for the patient. I agree with the APC's assessment as discussed. Please see the APC's dictation for further details. I did independently review the CT scan, 12-lead EKG and blood work. Patient is presenting with vertigo which appears to be peripheral in nature. He has had a similar episode in the past. He is on meclizine at home. He had a roaring in his ears. He complains of worsening vertigo when he closes his eyes. He has a negative test askew. He has only vertical nystagmus which improves with fixation at one point. He does not have rotatory or vertical nystagmus. He has no limb ataxia or dysdiadochokinesis. He was treated with meclizine and benzodiazepines.
--- NOTE | 2017-02-11 17:16 | DIAGNOSTIC IMAGING REPORT ---
SINGLE VIEW CHEST CLINICAL HISTORY: Vertigo. FINDINGS: An AP, portable, upright chest radiograph is compared to study dated 10/11/2012. The examination is degraded by portable technique and patient rotation. The heart is mildly enlarged. The pulmonary vasculature is noncongested. There are low lung volumes with bibasilar atelectasis. No large pleural effusion or pneumothorax is seen. The skeletal structures are osteopenic. Healed bilateral rib fractures are noted. IMPRESSION: Low lung volumes and mild cardiomegaly. No acute cardiopulmonary abnormality is seen. Electronically signed by: Caio Cabrales M.D. 02/11/2017 5:15 PM Dictated Date/Time: 02/11/2017 5:13 PM
[2017-02-11] MEDS ORDERED: PROMETHAZINE HCL INJ 12.5 MG in SODIUM CHLORIDE 0.9% 50ML 50 ML IV STA (17:17)
[2017-02-11 17:33] LABS: INR 3.2 (0.9-1.1); PARTIAL THROMBOPLASTIN RATIO 1.5; PROTHROMBIN TIME (PATIENT) 35.5 SECONDS (9.0-12.0)
--- NOTE | 2017-02-11 18:08 | DIAGNOSTIC IMAGING REPORT ---
CT OF THE HEAD WITHOUT CONTRAST CLINICAL HISTORY: Vertigo. Vomiting. COMPARISON STUDY: Head CT August 06, 2016. CT DOSE: 614.27 mGy.cm TECHNIQUE: Helical axial images of the head were obtained without IV contrast. Automated exposure control was utilized for the study. A dose lowering technique was utilized adhering to the principles of ALARA. FINDINGS: No acute intracranial hemorrhage, midline shift or mass effect is present. Ventricular system is stable. Basilar cisterns are patent. There are no extra-axial collections. There are no findings to suggest acute dural sinus thrombosis or acute territorial infarct. Mild mucosal thickening of the sinuses is similar to head CT of July 27, 2016. Mastoid air cells are clear and there are no significant calvarial abnormalities. IMPRESSION: No acute intracranial findings. Electronically signed by: Jd Gaspar M.D. 02/11/2017 6:07 PM Dictated Date/Time: 02/11/2017 6:04 PM
[2017-02-11 18:59] LABS: URINE APPEARANCE CLEAR (CLEAR); URINE BILIRUBIN NEG (NEG); URINE COLOR YELLOW; URINE NITRITE NEG (NEG); URINE SPECIFIC GRAVITY 1.024 (1.000-1.030); UROBILINOGEN NEG (NEG); ZZUR CULT IF INDIC CLEAN CATCH NO
[2017-02-11 19:06] LABS: MANUAL MICROSCOPIC REQUIRED? NO; REVIEW REQ? NO
[2017-02-11 19:49] VITALS: BP 136/98; PULSE 65; O2SAT 95
== END 2017-02-11 20:00 | disposition home or self-care (01) ==
LOC: EDBD 15:08 → C.EDC 15:09
DX: H81.10 Benign paroxysmal vertigo, unspecified ear (principal); N18.9 Chronic kidney disease, unspecified; I12.9 Hypertensive chronic kidney disease with stage 1 through stage 4 chronic kidney disease, or unspecified chronic kidney disease; E11.9 Type 2 diabetes mellitus without complications; E78.2 Mixed hyperlipidemia; Z83.3 Family history of diabetes mellitus; Z82.49 Family history of ischemic heart disease and other diseases of the circulatory system; Z84.1 Family history of disorders of kidney and ureter; Z79.82 Long term (current) use of aspirin; Z79.4 Long term (current) use of insulin; Z79.01 Long term (current) use of anticoagulants; Z79.899 Other long term (current) drug therapy

== ENCOUNTER → 2017-03-13 | Outpatient (CLI) | payer OTHER ==
[~2017-03-13] MED LIST changes: -NRN100 PO
--- NOTE | 2017-03-13 14:30 | DIAGNOSTIC IMAGING REPORT ---
Brain MRI WITHOUT CONTRAST HISTORY: R42 Vertigo [id number] TECHNIQUE: Multiplanar multisequence MRI of the brain was performed without the use of contrast. COMPARISON STUDY: Head CT 02/11/2017. FINDINGS: There is no mass, hematoma, midline shift, or acute infarct. Mild mucosal thickening within the paranasal sinuses and trace fluid levels within the maxillary sinuses. This is consistent with acute on chronic paranasal sinusitis.. The mastoid air cells are clear. The ventricles and sulci demonstrate mild age-related involutional changes. Scattered foci of T2 hyperintensity seen within the periventricular and subcortical white matter are nonspecific but suggestive of mild microvascular ischemic changes. The major vascular flow voids at the skull base are well-maintained. IMPRESSION: 1. No acute intracranial abnormality. Scattered foci of T2 hyperintensity seen within the periventricular and subcortical white matter are nonspecific but favor mild microvascular ischemic change. 2. Mild acute on chronic paranasal sinusitis. Electronically signed by: Kareem Luna M.D. 03/13/2017 2:29 PM Dictated Date/Time: 03/13/2017 2:20 PM
== END | disposition home or self-care (01) ==
LOC: C.MRI 13:39
PROVIDERS: ATTEND Internal Medicine Geriatric Medicine
DX: R42 Dizziness and giddiness (principal); J01.90 Acute sinusitis, unspecified; J32.9 Chronic sinusitis, unspecified

== ENCOUNTER → 2017-06-15 | Outpatient (CLI) | payer OTHER ==
[~2017-06-15] MED LIST changes: -METO25TA3 PO; +METO25TA4 PO
[2017-06-15 14:10] LABS: BASO % 0.7 %; BASO ABS # 0.04 K/uL (0-0.2); EOS % 6.6 %; HEMATOCRIT 46.9 % (42-52); IG# 0.02 K/uL (0.00-0.02); LYMPH % 29.7 %; LYMPH ABS # 1.81 K/uL (1.2-3.4); MEAN CELL VOLUME 92.9 fL (80-100); MEAN CORPUSCULAR HEMOGLOBIN 31.7 pg (25-34); MEAN CORPUSCULAR HGB CONC 34.1 g/dl (32-36); MEAN PLATELET VOLUME 9.3 fL (7.4-10.4); MONO % 11.3 %; MONO ABS # 0.69 K/uL (0.11-0.59); NEUT % 51.4 %; NEUT ABS # 3.13 K/uL (1.4-6.5); PLATELET COUNT 237 K/uL (130-400); RED CELL DISTRIBUTION WIDTH CV 13.1 % (11.5-14.5); RED CELL DISTRIBUTION WIDTH SD 44.6 fL (36.4-46.3); WHITE BLOOD COUNT 6.09 K/uL (4.8-10.8)
[2017-06-15 14:16] LABS: HEMOGLOBIN A1C 9.4 % (4.5-5.6)
[2017-06-15 14:41] LABS: ALBUMIN 3.7 gm/dl (3.4-5.0); ALT/SGPT 22 U/L (12-78); AST/SGOT 13 U/L (15-37); BLOOD UREA NITROGEN 34 mg/dl (7-18); CALCIUM 8.9 mg/dl (8.5-10.1); CARBON DIOXIDE 29 mmol/L (21-32); CHOLESTEROL 148 mg/dl (0-200); CREATININE 1.98 mg/dl (0.60-1.40); GLUCOSE 176 mg/dl (70-99); SODIUM 137 mmol/L (136-145); TOTAL PROTEIN 7.5 gm/dl (6.4-8.2)
[2017-06-15 14:46] LABS: ALKALINE PHOSPHATASE 76 U/L (45-117); LDL CHOLESTEROL CALCULATED 77 mg/dl
== END | disposition home or self-care (01) ==
LOC: C.LABPBG 09:23
PROVIDERS: ATTEND Internal Medicine Geriatric Medicine
DX: M10.9 Gout, unspecified (principal); I12.9 Hypertensive chronic kidney disease with stage 1 through stage 4 chronic kidney disease, or unspecified chronic kidney disease; E78.5 Hyperlipidemia, unspecified; E11.22 Type 2 diabetes mellitus with diabetic chronic kidney disease; I48.0 Paroxysmal atrial fibrillation; E55.9 Vitamin D deficiency, unspecified; N18.9 Chronic kidney disease, unspecified; Z79.01 Long term (current) use of anticoagulants

== ENCOUNTER → 2017-10-14 | Outpatient (CLI) | payer OTHER ==
[~2017-10-14] MED LIST changes: -AMLO-114 PO; +AMLO10TA3 PO
[2017-10-14 14:20] LABS: BLOOD UREA NITROGEN 37 mg/dl (7-18); CALCIUM 8.5 mg/dl (8.5-10.1); CARBON DIOXIDE 21 mmol/L (21-32); CREATININE 1.96 mg/dl (0.60-1.40); GLUCOSE 193 mg/dl (70-99); POTASSIUM 4.8 mmol/L (3.5-5.1); SODIUM 136 mmol/L (136-145)
== END | disposition home or self-care (01) ==
LOC: C.LABPBG 09:47
PROVIDERS: ATTEND Internal Medicine
DX: I10 Essential (primary) hypertension (principal); E11.9 Type 2 diabetes mellitus without complications; E87.5 Hyperkalemia

== ENCOUNTER → 2017-11-03 | Outpatient (CLI) | payer OTHER ==
[2017-11-03 13:18] LABS: BLOOD UREA NITROGEN 29 mg/dl (7-18); CALCIUM 8.4 mg/dl (8.5-10.1); CARBON DIOXIDE 23 mmol/L (21-32); CREATININE 2.06 mg/dl (0.60-1.40); GLUCOSE 271 mg/dl (70-99); POTASSIUM 4.8 mmol/L (3.5-5.1); SODIUM 134 mmol/L (136-145)
== END | disposition home or self-care (01) ==
LOC: C.LABPBG 09:37
PROVIDERS: ATTEND Internal Medicine
DX: N18.9 Chronic kidney disease, unspecified (principal)

== ENCOUNTER 2022-03-06 23:10 | Inpatient (IN) ==
[2022-03-06] MEDS ORDERED: SODIUM CHLORIDE 0.9% 500 ML IV ONE (23:20)
--- NOTE | 2022-03-06 23:31 | Emergency Department Note ---
Impression & Plan Bright red rectal bleeding ADMIT ED Provider Note HPI: The patient is an 81-year-old male who presents the emergency department with a chief complaint of rectal bleeding. Patient states that he has had some left- sided flank and abdominal pain for about the past 4 days. Patient states earlier this evening he felt an episode of pain when he was getting up from a chair and then felt something wet in his pants. He went to check himself in the bathroom and noted that he had some blood coming from his rectum. Patient does state that he has a history of hemorrhoids, also states that he does have a history of prostate cancer for which he previously received radiation therapy. Patient is on Coumadin for history of atrial fibrillation. On arrival here to the ED the patient is mildly tachycardic but otherwise in no acute distress, he is alert and oriented, he is saturating well on room air. ROS: -GI: Left-sided abdominal pain, rectal bleeding tonight *10 point review systems was conducted and is otherwise negative unless stated above *Outpatient medications and allergy history reviewed PE: General: Alert HEENT: Normocephalic, trachea midline Eyes: Extraocular eye movement is intact, no scleral erythema Pulmonary: Clear to auscultation bilaterally, no wheezing Cardio: Tachycardic rate with a regular rhythm GI: Abdomen is soft, left-sided abdominal tenderness to palpation/left flank tenderness, rectal examination performed with RN at the bedside does not show any evidence of gross bleeding, occult positive stool : No suprapubic tenderness MSK: No evidence of trauma or malformation of the extremities, no edema Skin: No evidence of rash Neuro: Alert, no focal deficits Psychiatric: Cooperative engine monitor: - An order was placed for continuous cardiac monitoring - Patient was noted to be in atrial fibrillation with a rate of 115 EKG: Rate: 122 Rhythm: Atrial fibrillation Intervals: Within normal limits ST changes: No ST elevation Time: 2323 Interventions provided in ED: -IV fluid bolus CT ABDOMEN & PELVIS Without Contrast: Comparison is made to a prior study dated 06/10/21. Since the prior examination, there is new significant perirectal stranding with edema of the rectal wall suggesting proctitis but an underlying mass lesion would be difficult to exclude in this setting. The patient is status post cholecystectomy. The kidneys are atrophic bilaterally without nephrolithiasis or urolithiasis identified. There is a hyperdense left lower pole renal cyst which is most likely hemorrhagic. There is scattered atherosclerotic disease of the abdominal aorta and its major branch vessels. There is degenerative disease of the thoracolumbar spine. There is mild bilateral gynecomastia. There is bibasilar atelectasis. Radiologist: Nacho Krishnamurthy MD Medical Decision Making: CT imaging of the abdomen pelvis shows concern for possible hemorrhagic cyst of the left kidney, there is a kidney cyst also noted on CT imaging from May of this year. Unclear if this is changed at all. In addition, patient is noted to have some findings concerning for proctitis or underlying mass lesion. He did have an episode of bright red rectal bleeding earlier today and he is on Coumadin, INR is 2.0. Hemoglobin is 13.6. Patient is hemodynamically stable although mildly tachycardic throughout his stay here in the ED. He was given IV fluids. I discussed the above findings with the patient and his . Over concern for the fact that he is on anticoagulation in addition to the fact that he has some abnormal findings on his CT imaging, patient will be admitted to the hospitalist service for further care and likely GI consultation. We will hold on any reversal agents as the patient's INR is just within therapeutic range. He has not had any further large-volume episodes of rectal bleeding while here in the ED. [facility] hospitalist service will be consulted for admission. Diagnosis: 1. Lower GI bleed, on Coumadin 2. 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 Biceps tendinitis of right upper extremity Chronic renal insufficiency Degenerative disc disease History of diverticulosis History of edema History of hyperkalemia History of pulmonary embolism History of vertigo Leg length discrepancy Myofascial pain Other hammer toe(s) (acquired), left foot Tubular adenoma of colon Surgical History H/O eye surgery H/O wrist surgery History of ankle surgery History of cataract surgery History of mandibular surgery S/P appendectomy S/P cholecystectomy S/P knee surgery Family History Mother Diabetes Kidney disease Myocardial infarction Father Stroke Myocardial infarction Family history of prostate problems Daughter Congenital heart defect Daughter Kidney disease Heart disease Son Leukemia Son Kidney disease Son No problems noted. Denies family history of Ovarian cancer Prostate cancer Breast cancer Social History Smoking Status: Never smoker Second Hand Exposure: No; Hx Alcohol Use: Yes (1 glass of wine with dinner once a week) Alcohol type: wine Hx Substance Use: No Preferred Language: Maori Communication Ability: Effective Visual Impairment: No Limitations Hearing Ability: Hard of Hearing Congressional Assistant Required: No Beliefs That Will Affect Care: None marital status: Current Living Situation: Spouse current occupational status: retired current occupation: [employer]; Feels Safe at Home: Yes Childhood Exposure to Second-Hand Smoke: Yes caffeine: Yes (1 cup/day) during the past year weight has: remained stable Dental Care, Regularly: Yes Physical Activity Frequency: Daily Seatbelt Use: always Do you think of yourself as: straight/heterosexual Allergies Allergies Allergy/AdvReac Type Severity Reaction Status Date / Time nizatidine Allergy Unknown UNKNOWN Verified 03/07/22 00:33 phenylbutazone Allergy Unknown UNKNOWN Verified 03/07/22 00:33 tetanus toxoid, adsorbed Allergy Unknown UNKNOWN Verified 03/07/22 00:33 Home Meds Home Medications Medication Instructions Recorded Confirmed metoprolol succinate 50 mg See Rx Instructions .Route .COMPLEX 03/14/21 03/07/22 tablet,extended release 24 hr aspirin 81 mg tablet,delayed 81 mg PO DAILY 03/07/22 03/07/22 release warfarin 5 mg tablet See Rx Instructions .Route .COMPLEX 03/07/22 03/07/22 Previous Rx's Medication Instructions Recorded insulin aspart U-100 100 unit/mL 15 - 20 unit (0.15 - 0.2 mL) 03/07/21 (3 mL) subcutaneous pen (Novolog subcut DAILY #15 mL Flexpen U-100 Insulin aspart) lisinopril 20 mg tablet 20 mg PO DAILY #90 tabs 06/10/21 pen needle, diabetic 31 gauge x #200 ea 07/03/2116" (BD Ultra-Fine Short Pen Needle) allopurinol 100 mg tablet 100 mg PO DAILY #180 tabs 05/09/22 furosemide 20 mg tablet 20 mg PO DAILY #90 tabs 01/23/22 hydrocodone 5 mg-acetaminophen 325 1 tab PO BID PRN pain #60 tabs 02/12/22 mg tablet atorvastatin 10 mg tablet 10 mg PO DAILY #90 tabs 02/17/22 insulin degludec 100 unit/mL (3 50 - 55 unit (0.5 - 0.55 mL) 02/25/22 mL) subcutaneous pen (Tresiba subcut DAILY #15 mL FlexTouch U-100 insulin) Results & Data (ED) Vital Signs Vital Signs - 24 hr 03/06/22 23:14 03/07/22 01:05 Temperature 36.6 C Temperature Source Temporal Artery Scan Pulse Rate 115 H 104 H Pulse Rate from SpO2 Sensor 99 H Respiratory Rate 18 14 Respiratory Effort / Characteristics Non-Labored Spontaneous Respiratory Depth Normal Blood Pressure 160/94 H 144/91 H Blood Pressure Mean 116 108 Blood Pressure Position Sitting Pulse Oximetry 97 95 Oxygen Delivery Method Room Air Sepsis Recent Fever Within 48 Hours No Sepsis New/Unexplained Change in Mental Status No Sepsis Action Taken by Nursing No Action Required Laboratory Data Result diagrams: 03/06/22 23:37 03/06/22 23:37 Lab Results 03/06/22 03/06/22 03/06/22 Range/Units 23:30 23:37 23:37 WBC 6.75 (4.8-10.8) K/ul RBC 4.31 L (4.63-6.08) M/uL Hgb 13.6 L (14.0-18.0) g/dl Hct 41.3 (40.1-51.0) % MCV 95.8 (80.0-100.0) fL MCH 31.6 (25.0-34.0) pg MCHC 32.9 (32.0-36.0) g/dL RDW Std Deviation 50.6 H (36.4-46.3) fL RDW Coeff of Jeremy 14.4 (11.5-14.5) % Plt Count 202 (130-400) K/uL MPV 8.3 L (9.4-12.4) fL Immature Gran % (Auto) 0.9 % Neut % (Auto) 65.3 % Lymph % (Auto) 21.0 % Lamar % (Auto) 9.8 % Eos % (Auto) 2.4 % Baso % (Auto) 0.6 % Neut # (Auto) 4.41 (1.4-6.5) K/uL Lymph # (Auto) 1.42 (1.2-3.4) K/uL Lamar # (Auto) 0.66 (0.24-0.82) K/uL Eos # (Auto) 0.16 (0-0.50) K/uL Baso # (Auto) 0.04 (0-0.2) K/uL Immature Gran # (Auto) 0.06 H (0.00-0.02) K/uL PT 20.8 H (9.0-12.0) Seconds INR 2.0 H (0.9-1.1) Sodium (136-145) mmol/L Potassium (3.5-5.1) mmol/L Chloride (98-107) mmol/L Carbon Dioxide (21-32) mmol/L Anion Gap (3-11) BUN (6-23) mg/dl Creatinine (0.6-1.4) mg/dl Est Cr Clr Drug Dosing ml/min Est GFR ( Amer) ml/min Est GFR (Non-Af Amer) ml/min BUN/Creatinine Ratio (10-20) Glucose (70-99(Fasting)) mg/dl Calcium (8.5-10.1) mg/dl Total Bilirubin (0.2-1.0) mg/dl AST (13-39) U/L ALT (7-52) U/L Alkaline Phosphatase (34-104) U/L Total Protein (6.0-8.3) gm/dl Albumin (3.4-5.0) gm/dl Globulin (2.5-4.0) gm/dl Albumin/Globulin Ratio (0.9-2) Lipase (11-82) U/L SARS-CoV-2, RNA, NAAT NEGATIVE (NEGATIVE) 03/06/22 Range/Units 23:37 WBC (4.8-10.8) K/ul RBC (4.63-6.08) M/uL Hgb (14.0-18.0) g/dl Hct (40.1-51.0) % MCV (80.0-100.0) fL MCH (25.0-34.0) pg MCHC (32.0-36.0) g/dL RDW Std Deviation (36.4-46.3) fL RDW Coeff of Jeremy (11.5-14.5) % Plt Count (130-400) K/uL MPV (9.4-12.4) fL Immature Gran % (Auto) % Neut % (Auto) % Lymph % (Auto) % Lamar % (Auto) % Eos % (Auto) % Baso % (Auto) % Neut # (Auto) (1.4-6.5) K/uL Lymph # (Auto) (1.2-3.4) K/uL Lamar # (Auto) (0.24-0.82) K/uL Eos # (Auto) (0-0.50) K/uL Baso # (Auto) (0-0.2) K/uL Immature Gran # (Auto) (0.00-0.02) K/uL PT (9.0-12.0) Seconds INR (0.9-1.1) Sodium 138 (136-145) mmol/L Potassium 4.9 (3.5-5.1) mmol/L Chloride 102 (98-107) mmol/L Carbon Dioxide 30 (21-32) mmol/L Anion Gap 6 (3-11) BUN 37 H (6-23) mg/dl Creatinine 1.93 H (0.6-1.4) mg/dl Est Cr Clr Drug Dosing 39.4 ml/min Est GFR ( Amer) 36.8 ml/min Est GFR (Non-Af Amer) 31.7 ml/min BUN/Creatinine Ratio 19.2 (10-20) Glucose 170 H (70-99(Fasting)) mg/dl Calcium 9.1 (8.5-10.1) mg/dl Total Bilirubin 0.8 (0.2-1.0) mg/dl AST 12 L (13-39) U/L ALT 10 (7-52) U/L Alkaline Phosphatase 71 (34-104) U/L Total Protein 8.0 (6.0-8.3) gm/dl Albumin 4.1 (3.4-5.0) gm/dl Globulin 3.9 (2.5-4.0) gm/dl Albumin/Globulin Ratio 1.1 (0.9-2) Lipase 47 (11-82) U/L SARS-CoV-2, RNA, NAAT (NEGATIVE) Administered Medications Discontinued Medications Sodium Chloride (Nss) 500 mls @ 999 mls/hr IV .Q31M ONE Stop: 03/06/22 23:50 Last Infusion: 03/07/22 01:05 Dose: 0 mls/hr Documented By: Admin: 03/06/22 23:45 Dose: 999 mls/hr Documented By: BEATRIS Discharge Plan Visit Data Chief Complaint: Rectal Bleed Stated Complaint: SEVERE BACK PAIN, RECTAL BLEED, RADIATION TREATMEN ED Provider: Yordy Parks Discharge Problem: Bright red rectal bleeding Patient Disposition: Admitted As Inpatient Forms Stand Alone Forms: [facility] Prescriptions Prescriptions: No Action Novolog Flexpen U-100 Insulin 100 unit/mL (3 mL) insulin pen 15 - 20 unit SQ DAILY Qty: 15 5RF lisinopril 20 mg tablet 20 mg PO DAILY Qty: 90 3RF (DME) pen needle, diabetic [BD Ultra-Fine Short Pen Needle] 31 gauge x 5/16" needle See Dose Instructions .ROUTE .MEDSUPPLY Qty: 200 6RF Rx Instructions: Use to inject insulin TID allopurinol 100 mg tablet 100 mg PO DAILY Qty: 180 1RF hydrocodone-acetaminophen 5-325 mg tablet 1 tab PO BID PRN (Reason: pain) Qty: 60 0RF atorvastatin 10 mg tablet 10 mg PO DAILY Qty: 90 3RF insulin degludec [Tresiba FlexTouch U-100] 100 unit/mL (3 mL) insulin pen 50 - 55 unit SQ DAILY Qty: 15 3RF metoprolol succinate 50 mg tablet extended release 24 hr See Rx Instructions .ROUTE .COMPLEX Rx Instructions: 50 mg orally; TAKES 50 MG QAM, THEN 25 MG QPM. furosemide 20 mg tablet 20 mg PO DAILY Qty: 90 3RF aspirin 81 mg Tablet,Delayed Release (Dr/Ec) 81 mg PO DAILY warfarin 5 mg tablet See Rx Instructions .ROUTE .COMPLEX Protocol: Dose Management Condition: Thursday Dose/Route: 5 mg Instruction: 1 x 5 mg tablet Condition: Thursday Dose/Route: 2.5 mg Instruction: 0.5 x 5 mg tablets Condition: Thursday Dose/Route: 5 mg Instruction: 1 x 5 mg tablet Condition: Thursday Dose/Route: 2.5 mg Instruction: 0.5 x 5 mg tablets Condition: Dose/Route: 5 mg Instruction: 1 x 5 mg tablet Condition: Thursday Dose/Route: 2.5 mg Instruction: 0.5 x 5 mg tablets Condition: Thursday Dose/Route: 5 mg Instruction: 1 x 5 mg tablet Protocol Text: Adjustment Start Date: Thursday02/18/22 INR Value: 2.6 INR Date: 02/18/22 Recheck Date: 03/18/22 Rx Instructions: 5 mg orally; TAKES 5 MG ON , , & THU. THEN 2.5 MG ON THU, THU, THU, & THU. Referrals Referrals: Shahab Vo MD [Primary Care Provider] -
[2022-03-07 00:03] LABS: Basophils # (auto) 0.04 K/uL (0-0.2); Basophils % (auto) 0.6 %; Eosinophils # (auto) 0.16 K/uL (0-0.50); Eosinophils % (auto) 2.4 %; Hematocrit (blood only) 41.3 % (40.1-51.0); Hemoglobin 13.6 g/dl (14.0-18.0); Immature Granulocytes # (auto) 0.06 K/uL (0.00-0.02); Immature Granulocytes % (auto) 0.9 %; Lymphocytes # (auto) 1.42 K/uL (1.2-3.4); Mean Corpuscular Hemoglobin 31.6 pg (25.0-34.0); Mean Corpuscular Hgb Conc 32.9 g/dL (32.0-36.0); Mean Corpuscular Volume 95.8 fL (80.0-100.0); Mean Platelet Volume 8.3 fL (9.4-12.4); Monocytes # (auto) 0.66 K/uL (0.24-0.82); Monocytes % (auto) 9.8 %; Neutrophils # (auto) 4.41 K/uL (1.4-6.5); Neutrophils % (auto) 65.3 %; Platelet Count 202 K/uL (130-400); RDW Coefficient of Variation 14.4 % (11.5-14.5); RDW Standard Deviation 50.6 fL (36.4-46.3); Red Blood Count 4.31 M/uL (4.63-6.08); White Blood Count 6.75 K/ul (4.8-10.8)
[2022-03-07 00:16] LABS: Albumin Globulin Ratio 1.1 (0.9-2); Albumin Level 4.1 gm/dl (3.4-5.0); BUN Creatinine Ratio 19.2 (10-20); Bilirubin,Total 0.8 mg/dl (0.2-1.0); Calcium 9.1 mg/dl (8.5-10.1); Creatinine Clr Calc Pharmacy 39.4 ml/min; Est GFR (African American) 36.8 ml/min; Est GFR (Non-African American) 31.7 ml/min; Globulin 3.9 gm/dl (2.5-4.0); Potassium 4.9 mmol/L (3.5-5.1)
[2022-03-07 00:35] LABS: Prothrombin Time 20.8 Seconds (9.0-12.0)
--- NOTE | 2022-03-07 02:45 | History & Physical Report ---
Date of Service March 07, 2022 Assessment & Plan (1) Bright red rectal bleeding: Plan: 81-year-old male with history of prostate cancer status post androgen deprivation therapy and radiation presenting with episode of bright red bleeding per rectum. Patient does report some constipation leading up to the event. Possibly hemorrhoidal bleed. His CT as above does show some new perirectal stranding question possibility of new mass difficult to exclude. He is he modynamically stable hemoglobin = 13.6, hematocrit = 41.3 Admit to medical family specialist CBC GI consultation appreciated Stool softeners -senna every morning and MiraLAX as needed Hold Coumadin (2) Flank pain: Plan: Etiology unclear. Suspect musculoskeletal origin as pain originated after patient nearly fell and twisted himself in order to catch his fall. Pain is very positional. Heat, Lidoderm and Flexeril as needed Tylenol as needed for pain Hydrocodoneacetaminophen as needed for pain (3) Chronic kidney disease, stage III (moderate): Plan: BUN/creatinine near baseline Continue to monitor Avoid nephrotoxic agents Renal dosing related (4) Dyslipidemia: Plan: Chronic. Stable. Continue atorvastatin 10 mg p.o. daily (5) Hypertension: Plan: Blood pressure adequately controlled. Continue lisinopril 20 mg p.o. daily Continue metoprolol as [id number] mg p.o. every morning and 25 mg p.o. every afternoon (6) Permanent atrial fibrillation: Plan: Rate controlled. Continue metoprolol Hold warfarin (7) Diabetes mellitus with renal complications: Plan: Patient with diabetes. Last hemoglobin A1c = 8.8 on 10/14/2021 Lantus 15 units twice daily and insulin sliding scale. Patient presently n.p.o. Goal blood sugar [id number] History of Present Illness Chief Complaint: Bright red blood per rectum Primary Care Provider: Shahab Vo MD Torrey Flor is an 81-year-old male with history of prostate cancer diagnosed in April 2021 status post androgen deprivation therapy and radiation as well as hypertension, diabetes, paroxysmal atrial fibrillation on Coumadin anticoagulation presenting with bright red blood per rectum. Patient got up from his chair this evening around 2129 and felt some wetness in his pants. He went to the bathroom and found his underpants full of bright red blood. He denies abdominal pain, nausea, vomiting, diarrhea. Denies chest pain, shortness of breath, dizziness or syncope. No rectal pain. He does report that he has been constipated recently and has needed to strain to start a bowel movement. When he does have a bowel movement it is normal. No pencil thin stools or blood noted prior to this evening. Additionally, patient complains of some left flank pain this been ongoing for the last 2 weeks. He believes this started when he slipped going down the stairs approximately 3 weeks ago. He did not fall but he reports tweaking his back. Since then he has episodes of severe intermittent pain in his left flank. The pain is very positional and pleuritic. He has not tried any therapies at home as of yet. No additional complaints at this time In the ER he is afebrile, mildly tachycardic otherwise hemodynamically stable. ER course: Normal saline x500ml Allergies Allergy/AdvReac Type Severity Reaction Status Date / Time nizatidine Allergy Unknown UNKNOWN Verified 03/07/22 00:33 phenylbutazone Allergy Unknown UNKNOWN Verified 03/07/22 00:33 tetanus toxoid, adsorbed Allergy Unknown UNKNOWN Verified 03/07/22 00:33 Home Medications Medication Instructions Recorded Confirmed Type insulin aspart U-100 100 unit/mL 15 - 20 unit (0.15 - 0.2 mL) 03/07/21 03/07/22 Rx (3 mL) subcutaneous pen (Novolog subcut DAILY #15 mL Flexpen U-100 Insulin aspart) metoprolol succinate 50 mg See Rx Instructions .Route .COMPLEX 03/14/21 03/07/22 History tablet,extended release 24 hr lisinopril 20 mg tablet 20 mg PO DAILY #90 tabs 06/10/21 03/07/22 Rx pen needle, diabetic 31 gauge x #200 ea 07/03/21 01/23/22 Rx 08/05" (BD Ultra-Fine Short Pen Needle) allopurinol 100 mg tablet 100 mg PO DAILY #180 tabs 07/29/21 03/07/22 Rx furosemide 20 mg tablet 20 mg PO DAILY #90 tabs 01/23/22 03/07/22 Rx hydrocodone 5 mg-acetaminophen 325 1 tab PO BID PRN pain #60 tabs 02/12/22 03/07/22 Rx mg tablet atorvastatin 10 mg tablet 10 mg PO DAILY #90 tabs 02/17/22 03/07/22 Rx insulin degludec 100 unit/mL (3 50 - 55 unit (0.5 - 0.55 mL) 02/25/22 03/07/22 Rx mL) subcutaneous pen (Tresiba subcut DAILY #15 mL FlexTouch U-100 insulin) aspirin 81 mg tablet,delayed 81 mg PO DAILY 03/07/22 03/07/22 History release warfarin 5 mg tablet See Rx Instructions .Route .COMPLEX 03/07/22 03/07/22 History 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 Biceps tendinitis of right upper extremity Chronic renal insufficiency Degenerative disc disease History of diverticulosis History of edema History of hyperkalemia History of pulmonary embolism History of vertigo Leg length discrepancy Myofascial pain Other hammer toe(s) (acquired), left foot Tubular adenoma of colon Surgical History H/O eye surgery H/O wrist surgery History of ankle surgery History of cataract surgery History of mandibular surgery S/P appendectomy S/P cholecystectomy S/P knee surgery Family History Mother Diabetes Kidney disease Myocardial infarction Father Stroke Myocardial infarction Family history of prostate problems Daughter Congenital heart defect Daughter Kidney disease Heart disease Son Leukemia Son Kidney disease Son No problems noted. 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: No Beliefs That Will Affect Care: None marital status: Current Living Situation: Spouse current occupational status: retired current occupation: [employer]; Feels Safe at Home: Yes Childhood Exposure to Second-Hand Smoke: Yes caffeine: Yes (1 cup/day) during the past year weight has: remained stable Dental Care, Regularly: Yes Physical Activity Frequency: Daily Seatbelt Use: always Do you think of yourself as: straight/heterosexual Review of Systems Review of Systems: All systems reviewed & are unremarkable except as noted in HPI & below Physical Exam Physical Exam: General: patient resting comfortably, NAD, non-toxic in appearance, AA&O x 4 Skin: warm, dry, intact, no rashes or lesions HEENT: NC/AT, PERRL, EOMI, anicteric sclera, conjunctiva without injection, external ear normal to inspection and nontender, nares patent, moist mucus membranes, dentition intact, no oropharyngeal lesions, neck supple, trachea midline, no LAD, no thyromegaly, no JVD Heart: +S1/S2, regular, no m/r/g Lungs: equal air entry bilaterally, no rales/rhonchi/wheezes Abd: +BS, soft, mildly distended, nontender, no masses/organomegaly/ascites Ext: warm, 2+ pulses in UE/LE bilaterally, no clubbing/cyanosis or edema Neuro: nonfocal, patient AA&O x 4, speech intact, no facial droop, moving all extremities on command with equal strength 5/5 Heme positive stool Results & Data Results & Data ([facility]) Vital Signs (Past 12 Hours) Vital Signs Temp Pulse Resp BP Pulse Ox O2 Del Method 03/07/22 02:31 164/117 H 03/07/22 02:30 106 H 20 96 03/07/22 02:00 129/91 03/07/22 01:36 110 H 12 98 03/07/22 01:05 104 H 14 144/91 H 95 03/06/22 23:14 36.6 C 115 H 18 160/94 H 97 Room Air Laboratory Results Laboratory Results WBC 6.75 K/ul (4.8-10.8) 03/06/22 23:37 RBC 4.31 M/uL (4.63-6.08) L 03/06/22 23:37 Hgb 13.6 g/dl (14.0-18.0) L 03/06/22 23:37 Hct 41.3 % (40.1-51.0) 03/06/22 23:37 MCV 95.8 fL (80.0-100.0) 03/06/22 23:37 MCH 31.6 pg (25.0-34.0) 03/06/22 23:37 MCHC 32.9 g/dL (32.0-36.0) 03/06/22 23:37 RDW Std Deviation 50.6 fL (36.4-46.3) H 03/06/22 23:37 RDW Coeff of Jeremy 14.4 % (11.5-14.5) 03/06/22 23:37 Plt Count 202 K/uL (130-400) 03/06/22 23:37 MPV 8.3 fL (9.4-12.4) L 03/06/22 23:37 Immature Gran % (Auto) 0.9 % 03/06/22 23:37 Neut % (Auto) 65.3 % 03/06/22 23:37 Lymph % (Auto) 21.0 % 03/06/22 23:37 [place] % (Auto) 9.8 % 03/06/22 23:37 Eos % (Auto) 2.4 % 03/06/22 23:37 Baso % (Auto) 0.6 % 03/06/22 23:37 Neut # (Auto) 4.41 K/uL (1.4-6.5) 03/06/22 23:37 Lymph # (Auto) 1.42 K/uL (1.2-3.4) 03/06/22 23:37 [facility] # (Auto) 0.66 K/uL (0.24-0.82) 03/06/22 23:37 Eos # (Auto) 0.16 K/uL (0-0.50) 03/06/22 23:37 Baso # (Auto) 0.04 K/uL (0-0.2) 03/06/22 23:37 Immature Gran # (Auto) 0.06 K/uL (0.00-0.02) H 03/06/22 23:37 PT 20.8 Seconds (9.0-12.0) H 03/06/22 23:37 INR 2.0 (0.9-1.1) H 03/06/22 23:37 Sodium 138 mmol/L (136-145) 03/06/22 23:37 Potassium 4.9 mmol/L (3.5-5.1) 03/06/22 23:37 Chloride 102 mmol/L (98-107) 03/06/22 23:37 Carbon Dioxide 30 mmol/L (21-32) 03/06/22 23:37 Anion Gap 6 (3-11) 03/06/22 23:37 BUN 37 mg/dl (6-23) H 03/06/22 23:37 Creatinine 1.93 mg/dl (0.6-1.4) H 03/06/22 23:37 Est Cr Clr Drug Dosing 39.4 ml/min 03/06/22 23:37 Est GFR ( Amer) 36.8 ml/min 03/06/22 23:37 Est GFR (Non-Af Amer) 31.7 ml/min 03/06/22 23:37 BUN/Creatinine Ratio 19.2 (10-20) 03/06/22 23:37 Glucose 170 mg/dl (70-99(Fasting)) H 03/06/22 23:37 Calcium 9.1 mg/dl (8.5-10.1) 03/06/22 23:37 Total Bilirubin 0.8 mg/dl (0.2-1.0) 03/06/22 23:37 AST 12 U/L (13-39) L 03/06/22 23:37 ALT 10 U/L (7-52) 03/06/22 23:37 Alkaline Phosphatase 71 U/L (34-104) 03/06/22 23:37 Total Protein 8.0 gm/dl (6.0-8.3) 03/06/22 23:37 Albumin 4.1 gm/dl (3.4-5.0) 03/06/22 23:37 Globulin 3.9 gm/dl (2.5-4.0) 03/06/22 23:37 Albumin/Globulin Ratio 1.1 (0.9-2) 03/06/22 23:37 Lipase 47 U/L (11-82) 03/06/22 23:37 SARS-CoV-2, RNA, NAAT NEGATIVE (NEGATIVE) 03/06/22 23:30 Blood Type A Positive 03/06/22 23: Antibody Screen NEGATIVE 03/06/22 23:[address] abdomen pelvis without contrastPer stat radcomparison is made to a prior study date 06-10-2021. Since the prior examination there is a new significant perirectal stranding with edema of the rectal wall suggesting proctitis but an underlying mass lesion would be difficult to exclude in the setting. The patient is status postcholecystectomy. The kidneys are atrophic bilaterally without nephrolithiasis or urolithiasis identified. There is a hyperdense left lower pole renal cyst which is most likely hemorrhagic. There is scattered atherosclerotic disease of the abdominal aorta and its major branch vessels. There is degenerative disease of the thoracolumbar spine. There is a mild bilateral gynecomastia. There is bilateral atelectasis. PG Care Time/CCT Total # of Minutes Spent Total Time Spent with Patient: Total time spent is greater than 50% in coordination of care (as documented) at patient's floor/unit and/or counseling patient: Coding Level of Care Code 04556 Initial Inpt Care Lvl 3 Diagnoses Bright red rectal bleeding K62.5 Flank pain R10.9 Chronic kidney disease, stage III (moderate) N18.3 Dyslipidemia E78.5 Hypertension I10 Permanent atrial fibrillation I48.2 Diabetes mellitus with renal complications E11.29
[2022-03-07] MEDS ORDERED: ACETAMINOPHEN 325 MG TAB PO PRN (05:31)
[2022-03-07] MEDS ORDERED: HYDROCODONE/ACETAMOPHEN 5/325MG TAB PO PRN ×2 (05:31→09:30)
[2022-03-07] MEDS ORDERED: DEXTROSE 50% 50 ML SYRINGE IV PRN (05:31)
[2022-03-07] MEDS ORDERED: POLYETHYLENE (MIRALAX) 17 GM PACK PO PRN (05:31)
[2022-03-07] MEDS ORDERED: GLUCAGON FOR INJ 1 MG VIAL SQ PRN (05:31)
[2022-03-07] MEDS ORDERED: ONDANSETRON INJ 2 MG/ML 2 ML VIAL IV PRN (05:31)
[2022-03-07] MEDS ORDERED: GLUCOSE 10 TAB/TUBE PO PRN (05:31)
[2022-03-07] MEDS ORDERED: CARBOHYDRATES FOR HYPOGLYCEMIA PO PRN (05:31)
[2022-03-07] MEDS ORDERED: GLUCOSE 40% GEL 15 GM TUBE PO PRN (05:31)
[2022-03-07] MEDS: INSULIN ASPART PER UNIT SC SCH ×2 (05:54→11:53)
[2022-03-07] MEDS ORDERED: ACETAMINOPHEN 1,000 MG/100 ML VIAL IV PRN (06:18)
--- NOTE | 2022-03-07 08:31 | CT Scan Report ---
ABDOMEN AND PELVIS CT WITHOUT CONTRAST CT DOSE: 2256.99 mGy.cm HISTORY: L sided abd pain TECHNIQUE: Multiaxial CT images of the abdomen and pelvis were performed without contrast. A dose lo wering technique was utilized adhering to the principles of ALARA. COMPARISON STUDY: Abdomen and pelvis CT 06/10/2021. FINDINGS: Stable 4 mm subpleural nodule within the right lower lobe on image 79. Mild interstitial th ickening again noted within the lung bases with a few punctate calcified granulomas and stable scarri ng within the right lateral lung base. No pneumoperitoneum. No pneumatosis. There is a left L5 pars d efect again noted. No suspicious lytic or blastic osseous lesions. Advanced coronary artery calcifica tions. Cholecystectomy. The unenhanced liver, pancreas, adrenal glands, and spleen are unremarkable. No renal or ureteral stones. No hydronephrosis. Small left renal lesions remain stable. This includes a 9 mm exophytic hyperdense lesion within the lower pole the left kidney. This is technically too sm all to characterize but favors a hyperdense cyst. No retroperitoneal lymphadenopathy. Normal caliber abdominal aorta. No pelvic lymphadenopathy. Moderate circumferential thickening of the rectum with pe rirectal fat stranding. This is also mild thickening of the bladder with adjacent fat stranding. The prostate gland remains mildly enlarged. No dilated loops of bowel to suggest an obstruction. Prior ap pendectomy. Mild to moderate well-formed stool seen within the colon. IMPRESSION: 1. Above findings consistent with a nonspecific proctitis and cystitis. This could be due to an infec tious or inflammatory process. Post radiation changes could also have a similar appearance. 2. No evidence for bowel obstruction. 3. No hydronephrosis. 4. Additional findings as described above. ACT 112: Negative or not required by law. Electronically signed by: Kareem Luna M.D. 03/07/2022 8:29 AM
[2022-03-07] MEDS ORDERED: CYCLOBENZAPRINE HCL 5 MG TAB PO SCH (09:00)
[2022-03-07] MEDS ORDERED: METOPROLOL SUCC 50MG EXT REL TAB PO SCH (09:00)
[2022-03-07] MEDS ORDERED: lisinopril 20 MG TAB PO SCH ×2 (09:00→09:45)
[2022-03-07] MEDS ORDERED: LIDOCAINE 5% 1 PATCH TD SCH (09:00)
[2022-03-07] MEDS ORDERED: ATORVASTATIN 10 MG TAB PO SCH (09:00)
[2022-03-07] MEDS ORDERED: allopurinoL 100 MG TAB PO SCH (09:00)
[2022-03-07] MEDS ORDERED: FUROSEMIDE 20 MG TAB PO SCH (09:00)
[2022-03-07] MEDS ORDERED: SENNA 8.6 MG TAB PO SCH (09:00)
[2022-03-07] MEDS ORDERED: LANTUS PER UNIT CHARGE SQ SCH (09:00)
[2022-03-07] MEDS ORDERED: ASPIRIN 81 MG ECTAB PO SCH (09:00)
--- NOTE | 2022-03-07 09:19 | Electrocardiogram Report ---
Test Reason : Blood Pressure : / mmHG Vent. Rate : 122 BPM Atrial Rate : 108 BPM P-R Int : 000 ms QRS Dur : 070 ms QT Int : 298 ms P-R-T Axes : 000 030 084 degrees QTc Int : 424 ms Poor data quality, interpretation may be adversely affected Atrial fibrillation with rapid ventricular response Diffuse Minor Nonspecific T wave abnormality Abnormal ECG When compared with ECG of 11-FEB-2017 15:14, No significant change Confirmed by Ravin Miguel ([id number]) on 03/07/2022 9:19:11 AM Referred By: REFERRED SELF Confirmed By:Ravin Miguel
--- NOTE | 2022-03-07 09:39 | Gastrointestinal Consultation ---
Date of Consultation March 07, 2022 Assessment & Plan (1) Bright red rectal bleeding: Plan 81 year old male with history of prostate cancer diagnosed s/p radiation in 2021, HTN, T2DM, atrial fibrillation on Coumadin admitted with BRBPR, ct showing nonspeific proctitis. As he denies any report of diarrhea, higher suspicion for radiation proctitis - Would submit stool culture and c.diff in the event he develops loose stools - Start Canasa suppositories at bedtime for at least 6 weeks - If bleeding persists, arrange OP colonoscopy with Dr. Glass - Start Miralax 1 capful daily - Trend H&H - Monitor and document GI output - Transfuse PRN Thank you for allowing us to participate in the care of this patient. Please call with any acute changes, questions or concerns. Please see addendum below with additional recommendation from my supervising physician. Supervising Physician Co-Signing Physician Notes I saw and evaluated the patient. We were consulted for evaluation of intermittent hematochezia. Of note the patient will undergo radiation therapy for prostate cancer which he completed earlier this year. The patient is on anticoagulation due to atrial fibrillation. Denies having fevers chills or sweats or rigors. Physical examination No obvious distress No scleral icterus No abdominal tenderness Impression: Patient presenting with scant hematochezia. Based on the history I wonder if he may have radiation proctitis. Plan outpatient colonoscopy to be arranged Canasa suppository nightly MiraLAX 17 gm per day Please call with any questions or concerns GI to sign History of Present Illness Reason for Consultation: rectal bleeding Requesting Physician: Yael Attending Physician: Rasheed Conley MD History of Present Illness 81 year old male with history of prostate cancer diagnosed s/p radiation in 2021, HTN, T2DM, atrial fibrillation on Coumadin admitted with bright red blood per rectum.He notes he was in his typical state of health, woke up from sleep around 2100 with bloating, cramping followed by warm sensation dripping down his legs and noted this was all BRB. Suggests he went to the rest room, had another episode of BRBPR with small amount of stool present. Denies any black stools. He has not had any abdominal pain but has bloating. No nausea, vomiting. No dysphagia. Appetite okay. No fever, chills, CP, SOB. 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 This could be due to an infectious or inflammatory process. Post radiation changes could also have a similar appearance. No evidence for bowel obstruction. No hydronephrosis. Colonoscopy 2020: One 5 mm polyp in the descending colon, removed with a cold snare. Resected and retrieved. - Internal hemorrhoids. - The examination was otherwise normal on direct and retroflexion views. Allergies Allergy/AdvReac Type Severity Reaction Status Date / Time nizatidine Allergy Unknown UNKNOWN Verified 03/07/22 00:33 phenylbutazone Allergy Unknown UNKNOWN Verified 03/07/22 00:33 tetanus toxoid, adsorbed Allergy Unknown UNKNOWN Verified 03/07/22 00:33 Home Medications Medication Instructions Recorded Confirmed Type insulin aspart U-100 100 unit/mL 15 - 20 unit (0.15 - 0.2 mL) 03/07/21 03/07/22 Rx (3 mL) subcutaneous pen (Novolog subcut DAILY #15 mL Flexpen U-100 Insulin aspart) metoprolol succinate 50 mg See Rx Instructions .Route .COMPLEX 03/14/21 03/07/22 History tablet,extended release 24 hr lisinopril 20 mg tablet 20 mg PO DAILY #90 tabs 06/10/21 03/07/22 Rx pen needle, diabetic 31 gauge x #200 ea 07/03/21 01/23/22 Rx 08/05" (BD Ultra-Fine Short Pen Needle) allopurinol 100 mg tablet 100 mg PO DAILY #180 tabs 07/29/21 03/07/22 Rx furosemide 20 mg tablet 20 mg PO DAILY #90 tabs 01/23/22 03/07/22 Rx hydrocodone 5 mg-acetaminophen 325 1 tab PO BID PRN pain #60 tabs 02/12/22 03/07/22 Rx mg tablet atorvastatin 10 mg tablet 10 mg PO DAILY #90 tabs 02/17/22 03/07/22 Rx insulin degludec 100 unit/mL (3 50 - 55 unit (0.5 - 0.55 mL) 02/25/22 03/07/22 Rx mL) subcutaneous pen (Tresiba subcut DAILY #15 mL FlexTouch U-100 insulin) aspirin 81 mg tablet,delayed 81 mg PO DAILY 03/07/22 03/07/22 History release warfarin 5 mg tablet See Rx Instructions .Route .COMPLEX 03/07/22 03/07/22 History Patient History Medical History 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 Biceps tendinitis of right upper extremity Chronic renal insufficiency Degenerative disc disease History of diverticulosis History of edema History of hyperkalemia History of pulmonary embolism History of vertigo Leg length discrepancy Myofascial pain Other hammer toe(s) (acquired), left foot Tubular adenoma of colon Surgical History H/O eye surgery H/O wrist surgery History of ankle surgery History of cataract surgery History of mandibular surgery S/P appendectomy S/P cholecystectomy S/P knee surgery Family History Mother Diabetes Kidney disease Myocardial infarction Father Stroke Myocardial infarction Family history of prostate problems Daughter Congenital heart defect Daughter Kidney disease Heart disease Son Leukemia Son Kidney disease Son No problems noted. 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 Required: No Beliefs That Will Affect Care: None marital status: Current Living Situation: Spouse Current Living Situation Comment: Lives w/ at home current occupational status: retired current occupation: [employer]; Feels Safe at Home: Yes Childhood Exposure to Second-Hand Smoke: Yes caffeine: Yes (1 cup/day) during the past year weight has: remained stable Dental Care, Regularly: Yes Physical Activity Frequency: Daily Seatbelt Use: always Do you think of yourself as: straight/heterosexual Assistive Devices: Denture - Upper and Denture - Lower Review of Systems Review of Systems: All systems reviewed & are unremarkable except as noted in HPI & below Physical Exam Constitutional: WD/WN, vitals as above Respiratory: normal respiratory effort, lungs clear to auscultation Cardiovascular: Rate/Rhythm: regular rate and regular rhythm Gastrointestinal (Abdomen): normal bowel sounds, soft, nontender, no hepatosplenomegaly Skin: no rashes, warm and dry Results & Data ([facility]) Vital Signs (Past 12 Hours) Vital Signs Temp Pulse Pulse Resp BP BP Pulse Ox 03/07/22 08:01 36.8 C 101 H 18 146/88 H 94 03/07/22 05:31 106 H 03/07/22 05:31 36.6 C 107 H 16 144/87 H 96 03/07/22 03:30 98 H 18 126/85 98 03/07/22 03:00 97 H 14 119/87 97 03/07/22 02:31 164/117 H 03/07/22 02:30 106 H 20 96 03/07/22 02:00 129/91 03/07/22 01:36 110 H 12 98 03/07/22 01:05 104 H 14 144/91 H 95 03/06/22 23:14 36.6 C 115 H 18 160/94 H 97 O2 Del Method 03/07/22 08:01 Room Air 03/07/22 05:31 03/07/22 05:31 Room Air 03/07/22 03:30 03/07/22 03:00 03/07/22 02:31 03/07/22 02:30 03/07/22 02:00 03/07/22 01:36 03/07/22 01:05 03/06/22 23:14 Room Air Laboratory Results 03/07/22 03/06/22 03/06/22 Range/Units 05:45 23:37 23:37 WBC (4.8-10.8) K/ul RBC (4.63-6.08) M/uL Hgb (14.0-18.0) g/dl Hct (40.1-51.0) % MCV (80.0-100.0) fL MCH (25.0-34.0) pg MCHC (32.0-36.0) g/dL RDW Std Deviation (36.4-46.3) fL RDW Coeff of Jeremy (11.5-14.5) % Plt Count (130-400) K/uL MPV (9.4-12.4) fL Immature Gran % (Auto) % Neut % (Auto) % Lymph % (Auto) % [place] % (Auto) % Eos % (Auto) % Baso % (Auto) % Neut # (Auto) (1.4-6.5) K/uL Lymph # (Auto) (1.2-3.4) K/uL [place] # (Auto) (0.24-0.82) K/uL Eos # (Auto) (0-0.50) K/uL Baso # (Auto) (0-0.2) K/uL Immature Gran # (Auto) (0.00-0.02) K/uL PT 20.8 H (9.0-12.0) Seconds INR 2.0 H (0.9-1.1) Sodium 138 (136-145) mmol/L Potassium 4.9 (3.5-5.1) mmol/L Chloride 102 (98-107) mmol/L Carbon Dioxide 30 (21-32) mmol/L Anion Gap 6 (3-11) BUN 37 H (6-23) mg/dl Creatinine 1.93 H (0.6-1.4) mg/dl Est Cr Clr Drug Dosing 39.4 ml/min Est GFR ( Amer) 36.8 ml/min Est GFR (Non-Af Amer) 31.7 ml/min BUN/Creatinine Ratio 19.2 (10-20) Glucose 170 H (70-99(Fasting)) mg/dl POC Glucose 124 H (70-99) mg/dl Calcium 9.1 (8.5-10.1) mg/dl Total Bilirubin 0.8 (0.2-1.0) mg/dl AST 12 L (13-39) U/L ALT 10 (7-52) U/L Alkaline Phosphatase 71 (34-104) U/L Total Protein 8.0 (6.0-8.3) gm/dl Albumin 4.1 (3.4-5.0) gm/dl Globulin 3.9 (2.5-4.0) gm/dl Albumin/Globulin Ratio 1.1 (0.9-2) Lipase 47 (11-82) U/L SARS-CoV-2, RNA, NAAT (NEGATIVE) Blood Type Antibody Screen 03/06/22 03/06/22 03/06/22 Range/Units 23:37 23:37 23:30 WBC 6.75 (4.8-10.8) K/ul RBC 4.31 L (4.63-6.08) M/uL Hgb 13.6 L (14.0-18.0) g/dl Hct 41.3 (40.1-51.0) % MCV 95.8 (80.0-100.0) fL MCH 31.6 (25.0-34.0) pg MCHC 32.9 (32.0-36.0) g/dL RDW Std Deviation 50.6 H (36.4-46.3) fL RDW Coeff of Jeremy 14.4 (11.5-14.5) % Plt Count 202 (130-400) K/uL MPV 8.3 L (9.4-12.4) fL Immature Gran % (Auto) 0.9 % Neut % (Auto) 65.3 % Lymph % (Auto) 21.0 % [place] % (Auto) 9.8 % Eos % (Auto) 2.4 % Baso % (Auto) 0.6 % Neut # (Auto) 4.41 (1.4-6.5) K/uL Lymph # (Auto) 1.42 (1.2-3.4) K/uL [place] # (Auto) 0.66 (0.24-0.82) K/uL Eos # (Auto) 0.16 (0-0.50) K/uL Baso # (Auto) 0.04 (0-0.2) K/uL Immature Gran # (Auto) 0.06 H (0.00-0.02) K/uL PT (9.0-12.0) Seconds INR (0.9-1.1) Sodium (136-145) mmol/L Potassium (3.5-5.1) mmol/L Chloride (98-107) mmol/L Carbon Dioxide (21-32) mmol/L Anion Gap (3-11) BUN (6-23) mg/dl Creatinine (0.6-1.4) mg/dl Est Cr Clr Drug Dosing ml/min Est GFR ( Amer) ml/min Est GFR (Non-Af Amer) ml/min BUN/Creatinine Ratio (10-20) Glucose (70-99(Fasting)) mg/dl POC Glucose (70-99) mg/dl Calcium (8.5-10.1) mg/dl Total Bilirubin (0.2-1.0) mg/dl AST (13-39) U/L ALT (7-52) U/L Alkaline Phosphatase (34-104) U/L Total Protein (6.0-8.3) gm/dl Albumin (3.4-5.0) gm/dl Globulin (2.5-4.0) gm/dl Albumin/Globulin Ratio (0.9-2) Lipase (11-82) U/L SARS-CoV-2, RNA, NAAT NEGATIVE (NEGATIVE) Blood Type A Positive Antibody Screen NEGATIVE
[2022-03-07] MEDS ORDERED: POLYETHYLENE (MIRALAX) 17 GM PACK PO SCH (09:45)
[2022-03-07 10:38] LABS: Hematocrit (blood only) 40.7 % (40.1-51.0); Hemoglobin 13.6 g/dl (14.0-18.0)
[2022-03-07 14:53] VITALS: BP 111/74; TEMP 98.4; O2SAT 96
--- NOTE | 2022-03-07 17:06 | Discharge Summary ---
Date of Service March 07, 2022 Admission HPI Per Admitting Provider Torrey Flor is an 81-year-old male with history of prostate cancer diagnosed in April 2021 status post androgen deprivation therapy and radiation June 2021 as well as hypertension, diabetes, paroxysmal atrial fibrillation on Coumadin anticoagulation presenting with bright red blood per rectum. Patient got up from his chair this evening around 2130 and felt some wetness in his pants. He went to the bathroom and found his underpants full of bright red blood. He denies abdominal pain, nausea, vomiting, diarrhea. Denies chest pain, shortness of breath, dizziness or syncope. No rectal pain. He does report that he has been constipated recently and has needed to strain to start a bowel movement. When he does have a bowel movement it is normal. No pencil thin stools or blood noted prior to this evening. Additionally, patient complains of some left flank pain this been ongoing for the last 2 weeks. He believes this started when he slipped going down the stairs approximately 3 weeks ago. He did not fall but he reports tweaking his back. Since then he has episodes of severe intermittent pain in his left flank. The pain is very positional and pleuritic. He has not tried any therapies at home as of yet. No additional complaints at this time In the ER he is afebrile, mildly tachycardic otherwise hemodynamically stable. 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 Gait was normal unassisted Discharge Data Allergies Allergy/AdvReac Type Severity Reaction Status Date / Time nizatidine Allergy Unknown UNKNOWN Verified 03/07/22 00:33 phenylbutazone Allergy Unknown UNKNOWN Verified 03/07/22 00:33 tetanus toxoid, adsorbed Allergy Unknown UNKNOWN Verified 03/07/22 00:33 Consultations 03/07/22 01:51 ED Decision to Admit Stat 03/07/22 05:31 Consult Gastroenterology Routine Ordered Studies 03/07/22 00:29 CT Abd and Pelvis [CT abd pelvis wo con] Urgent Hospital Course (1) Bright red rectal [age]-year-old male with history of prostate cancer status post androgen d eprivation therapy and radiation presenting with episode of bright red bleeding per rectum. Patient does report some constipation leading up to the event. Possibly hemorrhoidal bleed. His CT as above does show some new perirectal stranding Colonoscopy last year revealed a colon polyp and internal hemorrhoids Per rectal exam in the ED did not reveal any mass(though that is not mentioned on his Hemoccult testing as mentioned. Fecal occult blood test positive.) He is hemodynamically stable hemoglobin = 13.6, hematocrit = 41.3 Admit to medical bilingual sales representative [facility] GI consultation : Dr. Glass felt this was possibly radiation proctitis. Canasa (mesalamine) suppository started hs, MiraLAX 17 g daily for constipation Resume warfarin Hemoglobin has been stable and the patient is being discharged and in couple of weeks outpatient colonoscopy to be arranged (2) Flank pain: musculoskeletal origin as pain originated after patient nearly fell and twisted himself in order to catch his fall. Pain is very positional. Heat, Lidoderm and Flexeril as needed prescribed in the 20 or so hours the patient was in the hospital madrigal. He is being discharged and can continue Percocet. Advised examination is normal over the left lower paraspinal area where the pain is. It is above the like rest. Muscle strain is the most likely possibility and has been advised to alternate ice packs with heating packs Tylenol as needed for pain Hydrocodoneacetaminophen as needed for pain-Home med which he uses rarely (3) Chronic kidney disease, stage III (moderate): BUN/creatinine near baseline Continue to monitor Avoid nephrotoxic agents Renal dosing related (4) Dyslipidemia: Chronic. Stable. Continue atorvastatin 10 mg p.o. daily (5) Hypertension: Blood pressure adequately controlled. Continue lisinopril 20 mg p.o. daily Continue metoprolol as mg p.o. every morning and 25 mg p.o. every afternoon (6) Permanent atrial fibrillation: Rate controlled. Continue metoprolol Home dose of warfarin resumed at discharge (7) Diabetes mellitus with renal complications: Patient with diabetes. Last hemoglobin A1c = 8.8 on 10/14/2021 Home insulin regimen continued Goal blood sugar [id number] 180,150, 123 here. Plan Discharge home and GI will contact him in 2 weeks for colonoscopy. Telemetry A. fib rate controlled vitals at discharge 111/74, 76, 18, 36.9 To see PCP within 2 weeks Total Time Total Time Spent Total Time Spent (In Minutes): 45 Discharge Plan Discharge Items Patient Disposition: Home - Self-Care Reason For Visit: LGIB Discharge Diagnosis: Hematochezia Activity: Resume your previous activity Lifting: Gradually increase as tolerated Non-emergency contact: Primary Care Provider Call non-emergency contact if: your symptoms worsen Follow-up/Referrals: Shahab Vo MD [Primary Care Provider] - Diet: Carb Consistent or DM2 Addtl Attending Provider Instructions: Seek medical attention if you feel weak or dizzy and/or you have bleeding per rectum again. Gastroenterology will contact you for colonoscopy Pending Studies at Discharge: No Medications and DC Order Prescriptions: New polyethylene glycol 3350 [Miralax] 17 gram Powder In Packet 17 g PO DAILY Qty: 14 0RF acetaminophen 325 mg Tablet 650 mg PO Q4H PRN (Reason: pain) Qty: 20 0RF mesalamine [Canasa] 1,000 mg suppository 1 g [place] HS 42 Days Qty: 30 0RF Continued lisinopril 20 mg tablet 20 mg PO DAILY Qty: 90 3RF allopurinol 100 mg tablet 100 mg PO DAILY Qty: 180 1RF hydrocodone-acetaminophen 5-325 mg tablet 1 tab PO BID PRN (Reason: pain) Qty: 60 0RF atorvastatin 10 mg tablet 10 mg PO DAILY Qty: 90 3RF metoprolol succinate 50 mg tablet extended release 24 hr See Rx Instructions .ROUTE .COMPLEX Rx Instructions: 50 mg orally; TAKES 50 MG QAM, THEN 25 MG QPM. furosemide 20 mg tablet 20 mg PO DAILY Qty: 90 3RF aspirin 81 mg Tablet,Delayed Release (Dr/Ec) 81 mg PO DAILY warfarin 5 mg tablet See Rx Instructions .ROUTE .COMPLEX Protocol: Dose Management Condition: Thursday Dose/Route: 5 mg Instruction: 1 x 5 mg tablet Condition: Thursday Dose/Route: 2.5 mg Instruction: 0.5 x 5 mg tablets Condition: Thursday Dose/Route: 5 mg Instruction: 1 x 5 mg tablet Condition: Thursday Dose/Route: 2.5 mg Instruction: 0.5 x 5 mg tablets Condition: Dose/Route: 5 mg Instruction: 1 x 5 mg tablet Condition: Thursday Dose/Route: 2.5 mg Instruction: 0.5 x 5 mg tablets Condition: Thursday Dose/Route: 5 mg Instruction: 1 x 5 mg tablet Protocol Text: Adjustment Start Date: Thursday02/18/22 INR Value: 2.6 INR Date: 02/18/22 Recheck Date: 03/18/22 Rx Instructions: 5 mg orally; TAKES 5 MG ON , , & THU. THEN 2.5 MG ON THU, THU, THU, & THU. Discontinued Novolog Flexpen U-100 Insulin 100 unit/mL (3 mL) insulin pen 15 - 20 unit SQ DAILY Qty: 15 5RF (DME) pen needle, diabetic [BD Ultra-Fine Short Pen Needle] 31 gauge x 5/16" needle See Dose Instructions .ROUTE .MEDSUPPLY Qty: 200 6RF Rx Instructions: Use to inject insulin TID insulin degludec [Tresiba FlexTouch U-100] 100 unit/mL (3 mL) insulin pen 50 - 55 unit SQ DAILY Qty: 15 3RF Discharge Orders: Discharge Order (Routine); Ordered 03/07/22 Ordered By: Rasheed Conley Admission Data Admit Date/Time: 03/07/22 02:44 Attending Provider: Rasheed Conley Admit Provider: Amirah Yeboah Primary Care Provider: Shahab Vo Other Providers: Amirah Yeboah ; Tiburcio Alvarado Coding Level of Care Code D/C DAY MANAGEMENT >30 MINS Diagnoses Bright red rectal bleeding K62.5 Flank pain R10.9 Chronic kidney disease, stage III (moderate) N18.3 Dyslipidemia E78.5 Hypertension I10 Permanent atrial fibrillation I48.2 Diabetes mellitus with renal complications E11.29
[2022-03-07 18:25] VITALS: PULSE 97
[2022-03-07] MEDS ORDERED: METOPROLOL SUCC 25MG EXT REL TAB PO SCH (21:00)
== END 2022-03-07 06:25 | disposition home or self-care (01) | DRG 394 ==
LOC: ED 23:10 → 2N 03-07 02:44 → SUATTDRO 03-07 02:44 → 2N 03-07 05:13

== ENCOUNTER 2022-06-04 19:51 | Inpatient (IN) ==
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
[2022-06-04 20:31] LABS: Hematocrit (blood only) 41.7 % (42.0-52.0); Hemoglobin 14.1 g/dl (14.0-18.0); Mean Corpuscular Hemoglobin 32.3 pg (25.0-34.0); Mean Corpuscular Hgb Conc 33.8 g/dL (32.0-36.0); Mean Corpuscular Volume 95.6 fL (80.0-100.0); Mean Platelet Volume 8.5 fL (9.4-12.4); Platelet Count 237 K/uL (130-400); RDW Coefficient of Variation 13.9 % (11.5-14.5); RDW Standard Deviation 49.1 fL (36.4-46.3); Red Blood Count 4.36 M/uL (4.70-6.10); White Blood Count 7.11 K/ul (4.8-10.8)
[2022-06-04 20:48] LABS: Albumin Globulin Ratio 1.1 (0.9-2); Albumin Level 4.2 gm/dl (3.4-5.0); Bilirubin,Total 1.1 mg/dl (0.2-1.0); Calcium 9.5 mg/dl (8.5-10.1); Creatinine Clr Calc Pharmacy 34.3 ml/min; Est GFR (Non-African American) 30.2 ml/min; Potassium 4.4 mmol/L (3.5-5.1); Total Protein 8.2 gm/dl (6.0-8.3)
[2022-06-04 20:53] LABS: Troponin I High Sensitivity 8.8 pg/ml (0-20)
[2022-06-04 21:07] LABS: INR 2.6 (0.9-1.1); Partial Thromboplastin Ratio 1.5; Partial Thromboplastin Time 40.4 Seconds (21.0-31.0); Prothrombin Time 25.9 Seconds (9.0-12.0)
[2022-06-04] MEDS ORDERED: SODIUM CHLORIDE 0.9% 1000ML 1,000 ML IV ONE (21:07)
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
[2022-06-05] MEDS ORDERED: GLUCAGON FOR INJ 1 MG VIAL SQ PRN (01:27)
[2022-06-05] MEDS ORDERED: GLUCOSE 40% GEL 15 GM TUBE PO PRN (01:27)
[2022-06-05] MEDS ORDERED: DEXTROSE 50% 50 ML SYRINGE IV PRN (01:27)
[2022-06-05] MEDS ORDERED: ONDANSETRON INJ 2 MG/ML 2 ML VIAL IV PRN (01:27)
[2022-06-05] MEDS ORDERED: CARBOHYDRATES FOR HYPOGLYCEMIA PO PRN (01:27)
[2022-06-05] MEDS ORDERED: GLUCOSE 10 TAB/TUBE PO PRN (01:27)
[2022-06-05] MEDS ORDERED: HYDROCODONE/ACETAMOPHEN 5/325MG TAB PO PRN (01:27)
[2022-06-05] MEDS: LACTATED RINGER'S 1,000 ML IV SCH ×3 (01:40→18:18)
[2022-06-05] MEDS ORDERED: MELATONIN 3 MG TAB PO PRN (02:28)
[2022-06-05 02:56] LABS: Hematocrit (blood only) 38.3 % (42.0-52.0); Hemoglobin 12.5 g/dl (14.0-18.0); Mean Corpuscular Hemoglobin 31.9 pg (25.0-34.0); Mean Corpuscular Hgb Conc 32.6 g/dL (32.0-36.0); Mean Corpuscular Volume 97.7 fL (80.0-100.0); Mean Platelet Volume 8.5 fL (9.4-12.4); Platelet Count 199 K/uL (130-400); RDW Coefficient of Variation 14.2 % (11.5-14.5); RDW Standard Deviation 50.9 fL (36.4-46.3); Red Blood Count 3.92 M/uL (4.70-6.10)
[2022-06-05 03:14] LABS: BUN Creatinine Ratio 24.3 (10-20); Calcium 8.5 mg/dl (8.5-10.1); Creatinine Clr Calc Pharmacy 41.7 ml/min; Est GFR (African American) 39.5 ml/min; Est GFR (Non-African American) 34.1 ml/min; Potassium 4.5 mmol/L (3.5-5.1)
[2022-06-05] MEDS: INSULIN ASPART PER UNIT SC SCH ×4 (05:57→23:31)
[2022-06-05 08:10] LABS: Hematocrit (blood only) 35.9 % (42.0-52.0); Hemoglobin 12.2 g/dl (14.0-18.0); Mean Corpuscular Hemoglobin 31.9 pg (25.0-34.0); Mean Platelet Volume 8.6 fL (9.4-12.4); Platelet Count 169 K/uL (130-400); RDW Coefficient of Variation 14.1 % (11.5-14.5); RDW Standard Deviation 48.1 fL (36.4-46.3); Red Blood Count 3.82 M/uL (4.70-6.10); White Blood Count 4.93 K/ul (4.8-10.8)
[2022-06-05 08:23] LABS: BUN Creatinine Ratio 25.5 (10-20); Calcium 8.5 mg/dl (8.5-10.1); Creatinine Clr Calc Pharmacy 45.7 ml/min; Est GFR (African American) 44.1 ml/min; Est GFR (Non-African American) 38.1 ml/min; Potassium 4.6 mmol/L (3.5-5.1)
[2022-06-05] MEDS: LANTUS PER UNIT CHARGE SQ SCH ×2 (08:56→23:12)
[2022-06-05] MEDS: allopurinoL 100 MG TAB PO SCH (08:57)
[2022-06-05] MEDS: METOPROLOL SUCC 50MG EXT REL TAB PO SCH (08:57)
[2022-06-05] MEDS: lisinopril 20 MG TAB PO SCH (08:57)
[2022-06-05] MEDS: ATORVASTATIN 10 MG TAB PO SCH (08:57)
[2022-06-05] MEDS: POLYETHYLENE (MIRALAX) 17 GM PACK PO SCH (10:11)
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
--- NOTE | 2022-06-05 14:20 | Hospitalist Progress Note ---
Date of Service June 05, 2022 Assessment & Plan (1) Bright red rectal bleeding: Plan: Patient admitted on account of bright red blood per rectum Could be diverticular bleed, or from hemorrhoids had another episode this morning, which he described as coming in clots Hb is stable Has been evaluated by GI and plan is outpatient colonoscopy, scheduled for 06/18 Will continue to hold warfarin Monitor H/H (2) Prostate cancer: Plan: s/p radiation Follow up with urology and oncology (3) Chronic kidney disease, stage III (moderate): Plan: stable avoid nephrotoxics (4) Diabetes mellitus with renal complications: Plan: Blood glucose under good control continue Insulin and insulin sliding scale (5) Permanent atrial fibrillation: Plan: Continue metoprolol for rate control Hold Coumadin on account of gi bleed Plan continue to monitor for bleed, hopefully d/c in the next 24 hrs Admission and Anticipated Discharge Date Admission Date: June 04, 2022 Subjective patient seen and examined, says he had another bloody stool which came in blood clot Review of Systems Review of Systems: All systems reviewed are negative, apart from the ones contained in the history. Physical Exam Physical Exam: The patient is awake, alert and oriented 3, well developed and well nourished, normocephalic and atraumatic, lying in bed and in no acute distress. HEENT--PERRL, EOMI, mucous membranes and oropharynx mildly dry Neck--supple. No JVD. No bruits. Thyroid normal, trachea midline, no adenopathy. Heart--normal S1 and S2. No murmurs, rubs or gallops. Lungs--clear bilaterally, no respiratory distress, no accessory muscle use. Abdomen--normal bowel sounds and soft. Mild epigastric and left sided abdominal pain Extremities--no cyanosis or clubbing. No edema. Dermatologic--normal skin turgor, normal color, no abnormal lymph nodes, no rash. Neurologic--cranial nerves II through XII grossly intact. Rheumatologic--normal range of motion. Psychiatric--normal affect. Results & Data Results & Data Vital Signs (Past 12 Hours) Vital Signs Temp Pulse Resp BP Pulse Ox O2 Del Method 06/05/22 11:26 98.6 F 101 H 16 113/75 94 Room Air 06/05/22 07:22 97.5 F L 106 H 14 144/86 H 97 Room Air 06/05/22 04:26 97.7 F 111 H 20 123/87 96 Room Air PG Care Time/CCT Total # of Minutes Spent Total Time Spent with Patient: Total time spent is greater than 50% in coordination of care (as documented) at patient's floor/unit and/or counseling patient: Coding Level of Care Code 37515 SUB INP/OBS CARE 2/35MIN Diagnoses Bright red rectal bleeding K62.5 Prostate cancer C61 Chronic kidney disease, stage III (moderate) N18.3 Diabetes mellitus with renal complications E11.29 Permanent atrial fibrillation I48.2 Time Spent (min) 35
[2022-06-05] MEDS ORDERED: bisacodyL 5 MG TABEC PO ONE (15:01)
[2022-06-05] MEDS ORDERED: PHYTONADIONE 10 MG in DEXTROSE 5% 50 ML IV ONE (15:15)
[2022-06-05] MEDS ORDERED: LAVAGE SOLUTION 4000ML PO ONE (15:30)
[2022-06-05 19:11] LABS: INR 2.1 (0.9-1.1); Prothrombin Time 21.4 Seconds (9.0-12.0)
[2022-06-05 23:44] LABS: INR 1.9 (0.9-1.1); Prothrombin Time 19.3 Seconds (9.0-12.0)
[2022-06-06] MEDS: LACTATED RINGER'S 1,000 ML IV SCH ×2 (02:26→11:49)
[2022-06-06] MEDS: INSULIN ASPART PER UNIT SC SCH ×4 (06:07→20:29)
[2022-06-06] MEDS: lisinopril 20 MG TAB PO SCH (07:56)
[2022-06-06] MEDS: METOPROLOL SUCC 50MG EXT REL TAB PO SCH (07:56)
[2022-06-06] MEDS ORDERED: PHYTONADIONE 10 MG in DEXTROSE 5% 50 ML IV ONE (08:00)
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
[2022-06-06 08:37] LABS: Hematocrit (blood only) 35.1 % (42.0-52.0); Hemoglobin 12.2 g/dl (14.0-18.0); Mean Corpuscular Hemoglobin 31.9 pg (25.0-34.0); Mean Corpuscular Hgb Conc 34.8 g/dL (32.0-36.0); Mean Corpuscular Volume 91.9 fL (80.0-100.0); Mean Platelet Volume 9.2 fL (9.4-12.4); Platelet Count 186 K/uL (130-400); RDW Coefficient of Variation 14.1 % (11.5-14.5); RDW Standard Deviation 47.8 fL (36.4-46.3); Red Blood Count 3.82 M/uL (4.70-6.10); White Blood Count 5.73 K/ul (4.8-10.8)
[2022-06-06 08:40] LABS: INR 1.4 (0.9-1.1); Prothrombin Time 14.7 Seconds (9.0-12.0)
[2022-06-06] MEDS ORDERED: METOPROLOL SUCC 25MG EXT REL TAB PO ONE (08:45)
[2022-06-06 09:46] LABS: BUN Creatinine Ratio 20.4 (10-20); Calcium 8.9 mg/dl (8.5-10.1); Creatinine Clr Calc Pharmacy 48.7 ml/min; Est GFR (African American) 46.9 ml/min; Est GFR (Non-African American) 40.4 ml/min; Potassium 4.2 mmol/L (3.5-5.1)
[2022-06-06] MEDS ORDERED: LIDOCAINE 2% MPF LOCAL 5 ML VIAL INFIL ONE (09:50)
[2022-06-06] MEDS ORDERED: METOPROLOL TARTRATE 1 MG/ML VIAL IV ONE (09:50)
[2022-06-06] MEDS ORDERED: PROPOFOL IV EMULSION 10 MG/ML 20 ML VIAL IV ONE ×3 (09:50→10:50)
--- NOTE | 2022-06-06 10:00 | History & Physical Bridge Note ---
Date of Service June 06, 2022 History & Physical Bridge Note I have examined the patient, reviewed the History & Physical and in the interval since the performance of the History & Physical I have noted the following changes of clinical significance: no changes noted colonoscopy Patient was explained in detail regarding risks, benefits, limitations and alternatives of the above endoscopic procedure. Risks of intravenous sedation used for procedure were also explained. Risks include, but not limited to perf oration, bleeding, infection, respiratory distress, cardiac arrest and . Patient is also aware about the possibility of missed lesion. Patient's questions were answered. The patient verbalized understanding the information and agreed to undergo the procedure.
--- NOTE | 2022-06-06 10:55 | GI REPORT ---
Patient Name: Torrey Alvarez Procedure Date: 06/06/2022 9:53 AM Date of : 1940 Admit Type: Inpatient Age: 82 Gender: Male Attending MD: Tiburcio Alvarado MD, Procedure: Colonoscopy Providers: Tiburcio Alvarado MD Referring MD: Dorcas Hdz Md Indications: Rectal bleeding Medicines: Propofol per Anesthesia Complications: No immediate complications. Estimated Blood Loss: Estimated blood loss: none. Procedure: Pre-Anesthesia Assessment: - Prior to the procedure, a History and Physical was performed, and patient medications, allergies and sensitivities were reviewed. The patient's tolerance of previous anesthesia was reviewed. - The risks and benefits of the procedure and the sedation options and risks were discussed with the patient. All questions were answered and informed consent was obtained. - Patient identification and proposed procedure were verified prior to the procedure by the physician and the nurse. The procedure was verified in the procedure room. - Pre-procedure physical examination revealed no contraindications to sedation. After I obtained informed consent, the scope was passed under direct vision. Throughout the procedure, the patient's blood pressure, pulse, and oxygen saturations were monitored continuously. The Colonoscope was introduced through the anus and advanced to the cecum, identified by appendiceal orifice and ileocecal valve. The colonoscopy was performed without difficulty. The patient tolerated the procedure well. The quality of the bowel preparation was good. The ileocecal valve, appendiceal orifice, and rectum were photographed. Findings: The perianal and digital rectal examinations were normal. A single large angioectasia with typical arborization was found in the cecum. Vaporization for hemostasis using argon plasma was successful. To prevent bleeding post-intervention, seven hemostatic clips were successfully placed (MR conditional). Clip banking attorney: [place]. A single (solitary) ten mm ulcer was found in the rectum. Coagulation for hemostasis using bipolar probe was successful. One Padlock clip was attempted to be placed however the ulcer was very fibrotic and scarred won hence could not be deeply suctioned and the clip was very superficially placed. Non-bleeding internal hemorrhoids were found during retroflexion. The hemorrhoids were small. Impression: - A single colonic angioectasia. Treated with argon plasma coagulation (APC). Clips (MR conditional) were placed. - A single (solitary) ulcer in the rectum. Treated with bipolar cautery. - Non-bleeding internal hemorrhoids. Recommendation: - Return patient to [facility] for [facility] care. - Advance diet as tolerated. - Resume Coumadin (warfarin) at prior dose in 3 days. - Use daily Miralax and Fiber supplements. Tiburcio Alvarado MD 06/06/2022 10:54:29 AM This report has been signed electronically. Note Initiated On: 06/06/2022 9:53 AM Number of Addenda: 0 I attest to the content of the Intraoperative Record and orders documented therein, exceptions below {[id number]}
--- NOTE | 2022-06-06 11:00 | Anesthesiology Progress Note ---
Date of Service June 06, 2022 Anesthesia Post Procedure Vital Signs Vital Signs: Temp Pulse Pulse Resp BP BP Pulse Ox 06/06/22 09:14 35.8 C L 122 H 16 167/119 H 97 06/06/22 07:53 36.4 C L 112 H 18 138/105 H 165/105 H 96 06/06/22 02:45 36.4 C L 112 H 16 127/81 96 06/06/22 01:22 36.6 C 105 H 16 130/88 96 06/05/22 22:01 143 H 06/06/22 00:11 36.7 C 116 H 16 109/73 94 06/05/22 23:16 36.4 C L 126 H 18 117/81 95 06/05/22 19:50 36.6 C 103 H 18 147/93 H 95 06/05/22 15:56 36.5 C 102 H 18 135/85 97 06/05/22 11:26 37.0 C 101 H 16 113/75 94 O2 Del Method 06/06/22 09:14 Room Air 06/06/22 07:53 Room Air 06/06/22 02:45 Room Air 06/06/22 01:22 Room Air 06/05/22 22:01 06/06/22 00:11 Room Air 06/05/22 23:16 Room Air 06/05/22 19:50 Room Air 06/05/22 15:56 Room Air 06/05/22 11:26 Room Air Transfer of Care Handoff Completed per policy Notes Mental Status: alert / awake / arousable Patient Amnestic to Procedure: Yes Nausea / Vomiting: adequately controlled Pain: adequately controlled Airway Patency, RR, SpO2: stable & adequate BP & HR: stable & adequate Hydration State: stable & adequate Anesthetic Complications: no major complications apparent and Pt Satisfied with anesthetic care
--- NOTE | 2022-06-06 11:41 | Hospitalist Progress Note ---
Date of Service June 06, 2022 Assessment & Plan (1) Bright red rectal bleeding: Plan: Patient admitted on account of bright red blood per rectum Could be diverticular bleed, or from hemorrhoids had another episode this morning, which he described as coming in clots he is now s/p colonoscopy with cauterization and clipping of angioectasia and also clipping of a large rectal ulcer No warfarin for 3 days Appreciate GI Will monitor h and h (2) Prostate cancer: Plan: s/p radiation Follow up with urology and oncology (3) Chronic kidney disease, stage III (moderate): Plan: stable avoid nephrotoxics (4) Diabetes mellitus with renal complications: Plan: Blood glucose under good control continue Insulin and insulin sliding scale (5) Permanent atrial fibrillation: Plan: Continue metoprolol for rate control Hold Coumadin on account of gi bleed Plan continue to monitor for bleed, hopefully d/c in the next 24 hrs Admission and Anticipated Discharge Date Admission Date: June 04, 2022 Subjective patient seen and examined, says he had another bloody stool which came in blood clot Review of Systems Review of Systems: All systems reviewed are negative, apart from the ones contained in the history. Physical Exam Physical Exam: The patient is awake, alert and oriented 3, well developed and well nourished, normocephalic and atraumatic, lying in bed and in no acute distress. HEENT--PERRL, EOMI, mucous membranes and oropharynx mildly dry Neck--supple. No JVD. No bruits. Thyroid normal, trachea midline, no adenopathy. Heart--normal S1 and S2. No murmurs, rubs or gallops. Lungs--clear bilaterally, no respiratory distress, no accessory muscle use. Abdomen--normal bowel sounds and soft. Mild epigastric and left sided abdominal pain Extremities--no cyanosis or clubbing. No edema. Dermatologic--normal skin turgor, normal color, no abnormal lymph nodes, no rash. Neurologic--cranial nerves II through XII grossly intact. Rheumatologic--normal range of motion. Psychiatric--normal affect. Results & Data Results & Data Vital Signs (Past 12 Hours) Vital Signs Temp Pulse Resp BP BP Pulse Ox O2 Del Method 06/06/22 11:29 98 H 16 131/99 96 Room Air 06/06/22 11:14 89 16 119/81 97 Room Air 03/17/23 10:59 97.5 F L 108 H 16 102/74 96 Room Air 06/06/22 09:14 96.4 F L 122 H 16 167/119 H 97 Room Air 06/06/22 07:53 97.5 F L 112 H 18 138/105 H 165/105 H 96 Room Air 06/06/22 02:45 97.5 F L 112 H 16 127/81 96 Room Air 06/06/22 01:22 97.9 F 105 H 16 130/88 96 Room Air 06/06/22 00:11 98.1 F 116 H 16 109/73 94 Room Air PG Care Time/CCT Total # of Minutes Spent Total Time Spent with Patient: Total time spent is greater than 50% in coordination of care (as documented) at patient's floor/unit and/or counseling patient: Coding Level of Care Code 69897 SUB INP/OBS CARE 2/35MIN Diagnoses Bright red rectal bleeding K62.5 Prostate cancer C61 Chronic kidney disease, stage III (moderate) N18.3 Diabetes mellitus with renal complications E11.29 Permanent atrial fibrillation I48.2 Time Spent (min) 35
[2022-06-06] MEDS: allopurinoL 100 MG TAB PO SCH (11:48)
[2022-06-06] MEDS: ATORVASTATIN 10 MG TAB PO SCH (11:48)
[2022-06-06] MEDS: POLYETHYLENE (MIRALAX) 17 GM PACK PO SCH (11:49)
[2022-06-06 12:48] LABS: INR 1.3 (0.9-1.1); Prothrombin Time 13.7 Seconds (9.0-12.0)
[2022-06-06] MEDS: LANTUS PER UNIT CHARGE SQ SCH ×2 (13:11→20:29)
--- NOTE | 2022-06-07 00:09 | Electrocardiogram Report ---
Test Reason : Blood Pressure : / mmHG Vent. Rate : 122 BPM Atrial Rate : 108 BPM P-R Int : 000 ms QRS Dur : 072 ms QT Int : 314 ms P-R-T Axes : 000 002 071 degrees QTc Int : 447 ms Poor data quality, interpretation may be adversely affected Atrial fibrillation with rapid ventricular response Low voltage QRS Nonspecific T wave abnormality Abnormal ECG When compared with ECG of 06-MAR-2022 23:23, No significant change Confirmed by Hubert Dougherty ([id number]) on 06/07/2022 12:09:16 AM Referred By: REFERRED SELF Confirmed By:Hubert Dougherty
--- NOTE | 2022-06-07 06:35 | Billing Data ---
Date of Service June 07, 2022 Coding Level of Care Code 41773 INT INP/OBS CARE
[2022-06-07 07:37] LABS: Hemoglobin 12.5 g/dl (14.0-18.0); Mean Corpuscular Hemoglobin 32.1 pg (25.0-34.0); Mean Corpuscular Hgb Conc 33.8 g/dL (32.0-36.0); Mean Corpuscular Volume 95.1 fL (80.0-100.0); Mean Platelet Volume 8.4 fL (9.4-12.4); Platelet Count 171 K/uL (130-400); RDW Coefficient of Variation 14.2 % (11.5-14.5); RDW Standard Deviation 49.1 fL (36.4-46.3); Red Blood Count 3.89 M/uL (4.70-6.10); White Blood Count 6.31 K/ul (4.8-10.8)
[2022-06-07] MEDS: ATORVASTATIN 10 MG TAB PO SCH (08:22)
[2022-06-07] MEDS: lisinopril 20 MG TAB PO SCH (08:22)
[2022-06-07] MEDS: allopurinoL 100 MG TAB PO SCH (08:22)
[2022-06-07] MEDS: POLYETHYLENE (MIRALAX) 17 GM PACK PO SCH (08:26)
[2022-06-07] MEDS: INSULIN ASPART PER UNIT SC SCH ×2 (08:39→12:08)
[2022-06-07] MEDS: LANTUS PER UNIT CHARGE SQ SCH (08:40)
[2022-06-07] MEDS ORDERED: PSYLLIUM or GUAR GUM FIBER POWDER PACKET PO SCH (09:00)
[2022-06-07] MEDS ORDERED: METOPROLOL SUCC 25MG EXT REL TAB PO SCH (09:00)
[2022-06-07 10:57] VITALS: BP 146/79; PULSE 99; TEMP 98.1; O2SAT 96
--- NOTE | 2022-06-07 11:55 | Discharge Summary ---
Date of Service June 07, 2022 Admission HPI Per Admitting Provider Patient is an 82-year-old male with a past medical history of prostate cancer, CKD, DM 2, permanent atrial fibrillation on chronic anticoagulation with Coumadin, and previous admission for radiation proctitis who presents to the emergency department for evaluation for bright red blood per rectum. Reports that is only been going on today and has had 4-5 bowel movements consisting only of blood and mucus. He has only had 1 of these bowel movements in the emergency department. He does have a history of radiation proctitis with his most recent hospitalization in February 2022. Patient is on Coumadin for permanent atrial fibrillation. He did take all of his medications this morning including the Coumadin. Last INR today was 2.7. Denies any abdominal pain. Eating and drinking without difficulty. Denies fevers, chills, chest pain, or shortness of breath. No lightheadedness, dizziness, or headache. No other complaints at this time. Principal Diagnosis GI bleed, angidysplasia Discharge Exam The patient is awake, alert and oriented 3, well developed and well nourished, normocephalic and atraumatic, lying in bed and in no acute distress. HEENT--PERRL, EOMI, mucous membranes and oropharynx mildly dry Neck--supple. No JVD. No bruits. Thyroid normal, trachea midline, no adenopathy. Heart--normal S1 and S2. No murmurs, rubs or gallops. Lungs--clear bilaterally, no respiratory distress, no accessory muscle use. Abdomen--normal bowel sounds and soft. Mild epigastric and left sided abdominal pain Extremities--no cyanosis or clubbing. No edema. Dermatologic--normal skin turgor, normal color, no abnormal lymph nodes, no rash. Neurologic--cranial nerves II through XII grossly intact. Rheumatologic--normal range of motion. Psychiatric--normal affect. Discharge Data Allergies Allergy/AdvReac Type Severity Reaction Status Date / Time nizatidine Allergy Unknown UNKNOWN Verified 06/06/22 09:23 phenylbutazone Allergy Unknown UNKNOWN Verified 06/06/22 09:23 tetanus toxoid, adsorbed Allergy Unknown UNKNOWN Verified 06/06/22 09:23 Consultations 06/04/22 21:22 ED Decision to Admit Stat 06/05/22 01:27 Consult Gastroenterology Routine Procedures Performed Operation Date: 06/06/22 15:30 Actual Procedures p Colonoscopy Hemostasis - Tiburcio Alvarado MD Hospital Course (1) Bright red rectal bleeding: Patient admitted on account of bright red blood per rectum he is now s/p colonoscopy with cauterization and clipping of angioectasia and also clipping of a large rectal ulcer No bloody bowel movement this morning No warfarin for 3 days d/c to follow up with PCP Miralax daily and metamucil (2) Prostate cancer: s/p radiation Follow up with urology and oncology (3) Chronic kidney disease, stage III (moderate): stable avoid nephrotoxics (4) Diabetes mellitus with renal complications: Blood glucose under good control continue Insulin and insulin sliding scale (5) Permanent atrial fibrillation: Continue metoprolol for rate control Hold Coumadin on account of gi bleed Plan d/c home Total Time Total Time Spent Total Time Spent (In Minutes): 35 Discharge Plan Discharge Items Patient Disposition: Home - Self-Care Reason For Visit: BRBPR Discharge Diagnosis: GI bleed, angidysplasia Activity: Resume your previous activity Non-emergency contact: Primary Care Provider and [facility] [employer] [facility] Call non-emergency contact if: you have any medication questions and your symptoms worsen Follow-up/Referrals: Pro,Shahab Guardado MD [Primary Care Provider] - 06/16/22 11:00 am Diet: Regular Addtl Attending Provider Instructions: Please make appointment to follow up with your GI doctor and PCP Do not start your Coumadin until 06/11/22 Pending Studies at Discharge: No Stand-Alone Forms: My VHX, Smoking Cessation Medications and DC Order Prescriptions: Continued lisinopril 20 mg tablet 20 mg PO DAILY Qty: 90 3RF allopurinol 100 mg tablet 100 mg PO DAILY Qty: 180 1RF atorvastatin 10 mg tablet 10 mg PO DAILY Qty: 90 3RF insulin degludec [Tresiba FlexTouch U-100] 100 unit/mL (3 mL) insulin pen 50 - 55 unit SQ DAILY Qty: 15 3RF insulin aspart U-100 [Novolog FlexPen U-100 Insulin] 100 unit/mL (3 mL) insulin pen 15 - 20 unit SQ DAILY Qty: 15 5RF hydrocodone-acetaminophen 5-325 mg tablet 1 tab PO BID PRN (Reason: pain) Qty: 60 0RF metoprolol succinate 50 mg tablet extended release 24 hr 50 mg PO QAM furosemide 20 mg tablet 20 mg PO DAILY Qty: 90 3RF mesalamine 1,000 mg suppository 1,000 mg VT HS aspirin 81 mg Tablet,Delayed Release (Dr/Ec) 81 mg PO DAILY warfarin 5 mg tablet See Rx Instructions .ROUTE .COMPLEX Protocol: Dose Management Condition: Thursday Dose/Route: 5 mg Instruction: 1 x 5 mg tablet Condition: Thursday Dose/Route: 2.5 mg Instruction: 0.5 x 5 mg tablets Condition: Thursday Dose/Route: 5 mg Instruction: 1 x 5 mg tablet Condition: Thursday Dose/Route: 2.5 mg Instruction: 0.5 x 5 mg tablets Condition: Dose/Route: 5 mg Instruction: 1 x 5 mg tablet Condition: Thursday Dose/Route: 2.5 mg Instruction: 0.5 x 5 mg tablets Condition: Thursday Dose/Route: 5 mg Instruction: 1 x 5 mg tablet Protocol Text: Adjustment Start Date: 05/22/22 INR Value: 2.7 INR Date: 05/22/22 Recheck Date: 06/19/22 Rx Instructions: 5 mg orally; TAKES 5 MG ON , , & THU. THEN 2.5 MG ON THU, THU, THU, & THU. polyethylene glycol 3350 [Miralax] 17 gram Powder In Packet 17 g PO DAILY Qty: 14 0RF Discharge Orders: Discharge Order (Routine); Ordered 06/07/22 Ordered By: Dorcas Calvo/Other Patient Handouts: GI Bleeding Causes and Tests, Understanding Rectal Bleeding Admission Data Admit Date/Time: 06/06/22 13:48 Attending Provider: Dorcas Hdz Admit Provider: Payam Motley Primary Care Provider: Shahab Vo Other Providers: Wyatt Hopper ; Eriberto Bosch Other Interventions: Discharge Summary Assessment (RN) Last Done: 06/06/22 11:33 Coding Level of Care Code 86398 INP/OBS DISCH >30 MIN Diagnoses Bright red rectal bleeding K62.5 Prostate cancer C61 Chronic kidney disease, stage III (moderate) N18.3 Diabetes mellitus with renal complications E11.29 Permanent atrial fibrillation I48.2 Time Spent (min) 35
== END 2022-06-07 12:45 | disposition home or self-care (01) | DRG 378 ==
LOC: ED 19:51 → 2N 19:51 → SUATTDRO 23:19 → 2N 06-05 01:00
DX: N18.30 Chronic kidney disease, stage 3 unspecified; Z92.3 Personal history of irradiation; Z79.01 Long term (current) use of anticoagulants; I10 Essential (primary) hypertension; Z87.19 Personal history of other diseases of the digestive system; Z88.7 Allergy status to serum and vaccine; Z79.899 Other long term (current) drug therapy; E11.22 Type 2 diabetes mellitus with diabetic chronic kidney disease; Z79.4 Long term (current) use of insulin; Z86.711 Personal history of pulmonary embolism; Z79.82 Long term (current) use of aspirin; K62.6 Ulcer of anus and rectum; I48.21 Permanent atrial fibrillation; Z85.46 Personal history of malignant neoplasm of prostate; K55.21 Angiodysplasia of colon with hemorrhage; Z88.8 Allergy status to other drugs, medicaments and biological substances